=== PATIENT | male | born 1975 | race Caucasian/White ===

== ENCOUNTER 2018-03-19 16:01 | Observation (INO) ==
--- NOTE | 2018-03-19 17:46 | ED ---
HPI General Chief Complaint: Chest Pain Stated Complaint: Chest discomfort/tightness x AM Time Seen by Provider: 03/19/18 17:44 Source: patient Mode of arrival: ambulatory Limitations: no limitations History of Present Illness HPI narrative: 42-year-old male patient with history of smoking, diabetes, presents to the ER today because he states that he started having substernal chest discomfort this morning, states it radiates up to his neck area. He feels like it is pressure-like. He states is currently about a 2 out of 10. He denies any vomiting, fevers, shortness of breath, or other symptoms. He admits he has been more stressed out, but he states he is always kind of stressed out. Related Data Home Medications Medication Instructions Recorded Confirmed No Known Home Medications 03/19/18 03/19/18 Allergies Allergy/AdvReac Type Severity Reaction Status Date / Time amoxicillin Allergy Severe RASH Unverified 03/19/18 17:09 cephalexin Allergy Severe RASH Unverified 03/19/18 17:09 ketorolac Allergy Severe SWELLING Unverified 03/19/18 17:09 phenobarbital Allergy Severe RASH Unverified 03/19/18 17:09 butorphanol AdvReac Intermediate TACHYCARDIA Unverified 03/19/18 17:09 sumatriptan AdvReac Intermediate Nausea/Vomi Unverified 03/19/18 17:09 ting Review of Systems ROS: all other systems reviewed are negative [facility] Medical History Medical History Diabetes (Acute) Epilepsia (Acute) Hx of tooth extraction (Acute) Migraines (Acute) Surgical History Surgical History Hx of knee surgery (Acute) Social History Social History Substance History: No History of Abuse Second Hand Smoke Exposure: Yes Smoking Status: Current every day smoker Tobacco Type: Cigarettes How Often Do You Have a Drink Containing Alcohol: Never Recent Travel in [place] within the Last 8 Weeks: No Recent Out of Country Travel within the Last 8 Weeks: No Immunization History Tetanus Immunization: >5 Years Hx Influenza Vaccine This Season: No Exam Narrative Exam Narrative: GENERAL: Well-developed middle-age male patient currently in mild distress. SKIN: Focused skin assessment warm/dry. HEAD: Atraumatic. Normocephalic. EYES: Pupils equal and round. No scleral icterus. No injection or drainage. ENT: No nasal bleeding or discharge. Mucous membranes pink and moist. NECK: Trachea midline. No JVD. CARDIOVASCULAR: Regular rate and rhythm. No murmur appreciated. RESPIRATORY: No accessory muscle use. Clear to auscultation. Breath sounds equal bilaterally. GASTROINTESTINAL: Abdomen soft, non-tender, nondistended. Hepatic and splenic margins not palpable. MUSCULOSKELETAL: No obvious deformities. No clubbing. No cyanosis. No edema. NEUROLOGICAL: Awake and alert. No obvious cranial nerve deficits. Motor grossly within normal limits. Normal speech. PSYCHIATRIC: Appropriate mood and affect; insight and judgment normal. Course Initial Documented Vital Signs Temperature 98.3 F 03/19/18 17:05 Pulse Rate 78 03/19/18 17:05 Respiratory Rate 16 03/19/18 17:05 Blood Pressure 184/95 H 03/19/18 17:05 Pulse Oximetry 100 03/19/18 17:05 Last Documented Vital Signs Temperature 98.3 F 03/19/18 17:05 Pulse Rate 78 03/19/18 17:05 Respiratory Rate 16 03/19/18 17:05 Blood Pressure 184/95 H 03/19/18 17:05 Pulse Oximetry 98 03/19/18 17:50 Medical Decision Making MDM Narrative Medical decision making narrative: Show any significant dysrhythmias or ST changes. Cardiac enzymes are negative. Patient endorses family history of heart disease, he smokes, and blood pressure is elevated as well. At this point , my plan would be to admit him for further evaluation of chest pain in the chest pain center. Medical Screen Exam Complete: Yes Emergency Medical Condition: Yes Differential Diagnosis Differential Diagnosis: Chest pains: Anxiety attack versus ACS versus dysrhythmias Lab Data Lab results reviewed: Yes I reviewed the patient's lab results. Result diagrams: 03/19/18 17:50 03/19/18 17:50 Lab Results 03/19/18 03/19/18 Range/Units 17:50 17:50 CBC w Diff Auto diff final WBC 7.6 (4.0-11.0) th/mm3 RBC 4.80 (4.50-5.90) mil/mm3 Hgb 15.2 (13.0-17.0) gm/dL Hct 44.3 (39.0-51.0) % MCV 92.3 (80.0-100.0) fL MCH 31.7 (27.0-34.0) pg MCHC 34.3 (32.0-36.0) % RDW 12.3 (11.6-17.2) % Plt Count 183 (150-450) th/mm3 MPV 8.2 (7.0-11.0) fL Neut % (Auto) 67.0 (16.0-70.0) % Lymph % (Auto) 23.6 (9.0-44.0) % Cook % (Auto) 6.0 (0.0-8.0) % Eos % (Auto) 1.8 (0.0-4.0) % Baso % (Auto) 1.6 (0.0-2.0) % Neut # (Auto) 5.1 (1.8-7.7) th/mm3 Lymph # (Auto) 1.8 (1.0-4.8) th/mm3 Cook # (Auto) 0.5 (0.0-0.9) th/mm3 Eos # (Auto) 0.1 (0.0-0.4) th/mm3 Baso # (Auto) 0.1 (0.0-0.2) th/mm3 WBC Differential . Differential Comment . Sodium 139 (136-145) meq/L Potassium 4.0 (3.5-5.1) meq/L Chloride 108 H (98-107) meq/L Carbon Dioxide 23.3 (21.0-32.0) meq/L Anion Gap 8 (5-15) meq/L BUN 19 H (7-18) mg/dL Creatinine 1.10 (0.60-1.30) mg/dL Estimated GFR 74 L (>89) mL/min Random Glucose 101 (74-106) mg/dL Calcium 8.5 (8.5-10.1) mg/dL Total Bilirubin 0.3 (0.2-1.0) mg/dL AST 25 (15-37) U/L ALT 30 (12-78) U/L Alkaline Phosphatase 77 (45-117) U/L Troponin I Less than 0.02 L (0.02-0.05) ng/mL Total Protein 7.6 (6.4-8.2) g/dL Albumin 4.0 (3.4-5.0) g/dL Imaging Data My impression: CHEST X-RAY: No infiltrate, pneumothorax or mediastinal widening. Radiologist's impression: Chest X-Ray 03/19/18 17:44 CONCLUSION: No active disease. ECG Data Attestation: I personally reviewed and interpreted this ECG as follows: Interpretation: EKG shows normal sinus rhythm at a rate of 74 bpm. No signs of acute ST elevations or depressions. Discharge Plan Discharge Disposition Patient Disposition: 30 Still Patient Discharge Condition Condition: Stable Discharge Details Anticipated Discharge Date: 03/19/18 Diagnosis: Chest pain Physicians Team ED Provider: Lenard Marte Primary Care Provider: Primary Care Harleen Cruz Rxs /Orders / Referrals /Forms Prescriptions: No Action No Known Home Medications RF: 0 Discharge Instructions Patient Printed Instructions: Chest Pain (ED) Status ED Status: With Doctor
[2018-03-19 18:03] LABS: Baso # (Auto) 0.1 th/mm3 (0.0-0.2); Baso % (Auto) 1.6 % (0.0-2.0); Eos # (Auto) 0.1 th/mm3 (0.0-0.4); Eos % (Auto) 1.8 % (0.0-4.0); Hematocrit 44.3 % (39.0-51.0); Hemoglobin 15.2 gm/dL (13.0-17.0); Lymph # (Auto) 1.8 th/mm3 (1.0-4.8); Lymph % (Auto) 23.6 % (9.0-44.0); Mean Corpuscular HGB Conc 34.3 % (32.0-36.0); Mean Corpuscular Hemoglobin 31.7 pg (27.0-34.0); Mean Corpuscular Volume 92.3 fL (80.0-100.0); Mean Platelet Volume 8.2 fL (7.0-11.0); Mono # (Auto) 0.5 th/mm3 (0.0-0.9); Neut # (Auto) 5.1 th/mm3 (1.8-7.7); Platelet Count 183 th/mm3 (150-450); Red Cell Distribution Width 12.3 % (11.6-17.2); White Blood Count 7.6 th/mm3 (4.0-11.0)
[2018-03-19 18:06] LABS: Chloride 108 meq/L (98-107); Sodium 139 meq/L (136-145)
[2018-03-19 18:09] LABS: Calcium 8.5 mg/dL (8.5-10.1)
[2018-03-19 18:10] LABS: Anion Gap 8 meq/L (5-15); Blood Urea Nitrogen 19 mg/dL (7-18); Carbon Dioxide 23.3 meq/L (21.0-32.0); Glucose,Random 101 mg/dL (74-106)
[2018-03-19 18:13] LABS: Alanine Aminotransferase 30 U/L (12-78); Aspartate Aminotransferase 25 U/L (15-37); Glomerular Filtration Rate 74 mL/min (>89)
[2018-03-19 18:15] LABS: Total Protein 7.6 g/dL (6.4-8.2)
[2018-03-19 18:16] LABS: Alkaline Phosphatase 77 U/L (45-117)
--- NOTE | 2018-03-19 19:10 | XR ---
EXAM DATE: 03/19/2018 6:20 PM EDT AGE/SEX: 42 years / Male INDICATIONS: Patient complains of chest pain. CLINICAL DATA: This is the patient's initial encounter. Patient reports that signs and symptoms have been present for 1 day and indicates a pain score of 7/10. MEDICAL/SURGICAL HISTORY: None. None. COMPARISON: [facility] [place], 03[place]. . FINDINGS: A single AP view of the chest demonstrates the lungs to be symmetrically aerated without evidence of mass, infiltrate or effusion. The cardiomediastinal contours are unremarkable. Osseous structures a re intact. CONCLUSION: No active disease. Electronically signed by: Peña Velez MD 03/19/2018 7:09 PM EDT
[2018-03-19 21:26] LABS: Creatine Kinase 130 U/L (39-308)
[2018-03-20 00:29] LABS: Creatine Kinase 119 U/L (39-308)
[2018-03-20] MEDS ORDERED: Dextrose 50% in Water 50 ML Vial IV.PUSH PRN (05:34)
[2018-03-20] MEDS: Sod Chloride 0.9% Inj 1,000 ML IV.CONT SCH ×2 (06:00→17:57)
[2018-03-20] MEDS: Insulin NovoLOG Aspart Correctional Sugar Inj SQ SCH ×4 (07:13→21:22)
--- NOTE | 2018-03-20 08:06 | P.HP ---
History of Present Illness Primary Care Physician: No Primary Care Physician Chief Complaint: chest pain History of Present Illness: This is a 42-year-old male patient with a known medical history of tobacco abuse , diabetes who presented to the ED with complaints of chest pain. Patient states that while cleaning his home yesterday he noticed a chest pain that was substernal, radiating up his neck, was characteristically pressure-like in nature and at its worst was a 4 out of 10 on pain scale. The pain lasted several hours and patient states that the pain just got better on its own, denies any known aggravating or alleviating factors. Denies any associated nausea, vomiting, shortness of breath and sweating. Patient states that it feels like it could maybe be some gastric reflux or muscle strain. He does admit to history of an anxiety attack and states that this somewhat reminds him of that episode. Although he denies any anxiety yesterday. Patient denies any recent illness including fever, chills, cough, shortness of breath, headache, vomiting, nausea, vomiting, diarrhea or dysuria. Patient does not follow with the PCP. Patient admits to a significant family medical history on both mother and father's side of cardiovascular disease. He does admit to smoking 1 pack per day of cigarettes for the last 5 years. - Diagnosis (1) Chest pain Review of Systems All other systems reviewed negative except as stated in HPI PMFSH - History History Provided By: Patient - Medical History Medical History: Medical History (Last Reviewed 03/20/18 @ 08:05 by Ida Pardo) Diabetes Epilepsia Hx of tooth extraction Migraines Tobacco abuse - Surgical History Surgical History: Surgical History (Last Reviewed 03/20/18 @ 08:05 by Ida Pardo) Hx of knee surgery - Family History Family History: Family History (Last Updated 03/20/18 @ 08:24 by Ida Pardo) Mother Cardiovascular disease Father Cardiovascular disease - Tobacco History Second Hand Smoke Exposure: Yes Tobacco Use In Past 30 Days: Yes Smoking Status: Current every day smoker Tobacco Type: Cigarettes - Alcohol History How Often Do You Have a Drink Containing Alcohol: Never - Substance Use History Substance History: No History of Abuse - Travel History Recent Travel in the [place] Within the Last 8 Weeks: No Recent Travel Out of the Country Within the Last 8 Weeks: No - Immunization History Tetanus Immunization: >5 Years Hx Influenza Vaccine This Season: No Medications and Allergies Active Medications: Active Medications Aspirin (Aspirin) 325 mg PO DAILY [facility] Clonidine HCl (Catapres) 0.1 mg PO Q6H PRN PRN Reason: SEE LABEL COMMENTS Dextrose (D50w Vial) 50 ml IV.PUSH UNSCH PRN PRN Reason: PER HYPOGLYCEMIA PROTOCOL Enalaprilat (Vasotec Inj) 1.25 mg IV.PUSH Q6H PRN PRN Reason: SEE LABEL COMMENTS Glucagon (Glucagon Inj) 1 mg OTHER PRN PRN PRN Reason: for Hypoglycemia Protocol Sodium Chloride (Ns Inj) 1,000 mls @ 84 mls/hr IV.CONT .[id number] [facility] Last Admin: 03/20/18 06:00 Dose: 84 mls/hr Insulin Aspart (Novolog Insulin Correctional Sugar Inj) 0 unit SQ ACHS [facility]; Protocol Last Admin: 03/20/18 07:13 Dose: Not Given Sodium Chloride (Ns Flush) 2 ml IV.FLUSH BID [facility] Last Admin: 03/19/18 20:08 Dose: 2 ml Sodium Chloride (Ns Flush) 2 ml IV.FLUSH PRN PRN PRN Reason: FLUSH AFTER USING IV ACCESS Allergies Allergy/AdvReac Type Severity Reaction Status Date / Time amoxicillin Allergy Severe RASH Verified 03/19/18 20:19 cephalexin Allergy Severe RASH Verified 03/19/18 20:19 ketorolac Allergy Severe SWELLING Verified 03/19/18 20:19 phenobarbital Allergy Severe RASH Verified 03/19/18 20:19 butorphanol AdvReac Intermediate TACHYCARDIA Verified 03/19/18 20:19 sumatriptan AdvReac Intermediate Nausea/Vomi Verified 03/19/18 20:19 ting Home Medications Medication Instructions Recorded Confirmed Type No Known Home Medications 03/19/18 03/19/18 History Exam Vital signs: Vital Signs 03/19/18 17:05 03/19/18 17:50 03/19/18 19:20 Temperature 98.3 F Pulse Rate 78 74 Respiratory Rate 16 16 Blood Pressure 184/95 H 169/95 H Pulse Oximetry 100 98 98 03/19/18 20:00 03/19/18 22:25 03/20/18 00:00 Temperature 96.9 F L Pulse Rate 72 88 Respiratory Rate 20 Blood Pressure 173/90 H 191/99 H Pulse Oximetry 99 99 03/20/18 04:00 Temperature 97.9 F Pulse Rate 80 Respiratory Rate 20 Blood Pressure 139/80 Pulse Oximetry 98 Intake & Output 03/19/18 03/20/18 03/20/18 18:59 06:59 18:59 Intake Total 0 / 0 Balance 0 / 0 Weight 98 kg 98 kg Intake: Oral 0 / 0 Other: # Voids 3 Narrative: GENERAL: Well-developed, well-nourished patient in [facility]. SKIN: Warm and dry. No rash. HEAD: Normocephalic. Atraumatic. EYES: Pupils equal and round. No scleral icterus. No injection or drainage. ENT: No nasal bleeding or discharge. Mucous membranes pink and moist. NECK: Supple. Trachea midline. CARDIOVASCULAR: Regular rate and rhythm. S1, S2 noted. No murmur appreciated. No chest pain to palpation. RESPIRATORY: No accessory muscle use. Clear to auscultation. Breath sounds equal bilaterally. GASTROINTESTINAL: Abdomen soft, non-tender, nondistended. Normoactive bowel sounds x4. MUSCULOSKELETAL: No obvious deformities. Extremities without clubbing, cyanosis , or edema. NEUROLOGICAL: Awake and alert. No obvious cranial nerve deficits. Motor grossly within normal limits. 5/5 muscle strength in bilateral upper and lower extremities. Normal speech. PSYCHIATRIC: Appropriate mood and affect; insight and judgment normal. Results - Labs CBC & Chem 7: 03/19/18 17:50 03/19/18 17:50 Labs: Laboratory Results - last 24 hr 03/19/18 03/19/18 03/19/18 17:50 17:50 20:55 CBC w Diff Auto diff final WBC 7.6 RBC 4.80 Hgb 15.2 Hct 44.3 MCV 92.3 MCH 31.7 MCHC 34.3 RDW 12.3 Plt Count 183 MPV 8.2 Neut % (Auto) 67.0 Lymph % (Auto) 23.6 [place] % (Auto) 6.0 Eos % (Auto) 1.8 Baso % (Auto) 1.6 Neut # (Auto) 5.1 Lymph # (Auto) 1.8 [place] # (Auto) 0.5 Eos # (Auto) 0.1 Baso # (Auto) 0.1 WBC Differential . Differential Comment . Sodium 139 Potassium 4.0 Chloride 108 H Carbon Dioxide 23.3 Anion Gap 8 BUN 19 H Creatinine 1.10 Estimated GFR 74 L Random Glucose 101 Calcium 8.5 Total Bilirubin 0.3 AST 25 ALT 30 Alkaline Phosphatase 77 Total Creatine Kinase 130 Troponin I Less than 0.02 L Less than 0.02 L Total Protein 7.6 Albumin 4.0 03/20/18 00:01 CBC w Diff WBC RBC Hgb Hct MCV MCH MCHC RDW Plt Count MPV Neut % (Auto) Lymph % (Auto) [place] % (Auto) Eos % (Auto) Baso % (Auto) Neut # (Auto) Lymph # (Auto) [place] # (Auto) Eos # (Auto) Baso # (Auto) WBC Differential Differential Comment Sodium Potassium Chloride Carbon Dioxide Anion Gap BUN Creatinine Estimated GFR Random Glucose Calcium Total Bilirubin AST ALT Alkaline Phosphatase Total Creatine Kinase 119 Troponin I Less than 0.02 L Total Protein Albumin - Imaging Impressions Chest X-Ray 03/19/18 17:44 CONCLUSION: No active disease. Caprini VTE Risk Assessment Caprini VTE Risk Assessment: No/Low Risk (score <= 1) Caprini Risk Assessment Model: Point Value = 1 Point Value = 2 Point Value = 3 Point Value = 5 Age 41-60 Minor surgery BMI > 25 kg/m2 Swollen legs Varicose veins or History of unexplained or recurrent spontaneous Oral contraceptives or hormone replacement Sepsis (< 1 month) Serious lung disease, including pneumonia (< 1 month) Abnormal pulmonary function Acute myocardial infarction Congestive heart failure (< 1 month) History of inflammatory bowel disease Medical patient at bed rest Age 61-74 Arthroscopic surgery Major open surgery (> 45 min) Laparoscopic surgery (> 45 min) Malignancy Confined to bed (> 72 hours) Immobilizing plaster cast Central venous access Age >= 75 History of VTE Family history of VTE Factor V Leiden Prothrombin [id number] Lupus anticoagulant Anticardiolipin antibodies Elevated serum homocysteine Heparin-induced thrombocytopenia Other congenital or acquired thrombophilia Stroke (< 1 month) Elective arthroplasty Hip, pelvis, or leg fracture Acute spinal cord injury (< 1 month) Prophylaxis Regimen: Total Risk Factor Score Risk Level Prophylaxis Regimen 0-1 Low Early ambulation 2 Moderate Order ONE of the following: *Sequential Compression Device (SCD) *Heparin 5000 units SQ BID 3-4 Higher Order ONE of the following medications: *Heparin 5000 units SQ TID *Enoxaparin/Lovenox 40 mg SQ daily (WT < 150 kg, CrCl > 30 mL/min) *Enoxaparin/Lovenox 30 mg SQ daily (WT < 150 kg, CrCl > 10-29 mL/min) *Enoxaparin/Lovenox 30 mg SQ BID (WT < 150 kg, CrCl > 30 mL/min) AND/OR *Sequential Compression Device (SCD) 5 or more Highest Order ONE of the following medications: *Heparin 5000 units SQ TID (Preferred with Epidurals) *Enoxaparin/Lovenox 40 mg SQ daily (WT < 150 kg, CrCl > 30 mL/min) *Enoxaparin/Lovenox 30 mg SQ daily (WT < 150 kg, CrCl > 10-29 mL/min) *Enoxaparin/Lovenox 30 mg SQ BID (WT < 150 kg, CrCl > 30 mL/min) AND *Sequential Compression Device (SCD) Assessment and Plan - Assessment (1) Chest pain Code(s): R07.9 - Chest pain, unspecified Status: Acute - Plan This is a 42-year-old male patient with: Chest pain -Patient has been admitted to the chest pain center for observation. -Serial EKGs and serial troponins have been ordered for ruling out ACS purposes. Serial troponins flat. -EKG reviewed showing sinus rhythm with some early repolarization, no ST changes to indicate any ischemia. Chest pain has resolved. -Patient does state that he does have a feeling of some reflux. Will provide some Maalox, assess response. -Patient continued on cardiac telemetry, no arrhythmias overnight. Will continue. Chest x-ray reviewed showing no acute cardiopulmonary disease. -Patient will undergo a cardiac treadmill stress test to further rule out any ischemia, further hospitalization and treatment plan will depend on treadmill results. -Patient is stable at this time and agreeable with plan. Diet-controlled diabetes -Accu-Chek before meals at bedtime, sliding scale, cover as needed. -Patient states that he does not take anything for diabetes. This is well controlled with diet. -We will continue to monitor blood sugar trends. Monitor for any hypoglycemia. DVT prophylaxis: Low risk. Ambulation.
[2018-03-20] MEDS ORDERED: Aluminum/Magnesium/Simethacone Susp 30 ML UDC PO ONE (08:24)
[2018-03-20] MEDS: Aspirin 325 MG Tablet PO SCH (08:33)
--- NOTE | 2018-03-20 10:32 | TR ---
Date Performed: 03/20/2018 Time Performed: 09:46:13 DOCTOR: Gilmer Boggs DRUG LIST: CLINICAL HISTORY: REASON FOR TEST: REASON FOR ENDING: OBSERVATION: CONCLUSION: Albert protocol completed, test stopped secondary to reaching target heart rate. Good exercise tolerance. Good BP response. Recovery quick and unremarkable. No reproducible chest discomf ort. Maximum QE=082 Target HR Wkhvqlen=720.0% Maximum UJ=924/74 Total Exercise Time=6:28 COMMENTS: Nonspecific ST-T changes are noted which normalized with exercise. However V6 continu es into recovery. This is low probability of significant ischemic heart disease however further eval uation with nuclear scan will be considered.
[2018-03-20] MEDS ORDERED: Regadenoson Inj 0.4 MG/5 ML Syringe IV.PUSH ONE (14:35)
--- NOTE | 2018-03-20 14:40 | ECG ---
Date Performed: 03/20/2018 Time Performed: 00:30:27 PTAGE: 42 years EKG: Sinus rhythm EARLY REPOLARIZATION BORDERLINE ECG Since the PREVIOUS TRACING , no significant change noted PREVIOUS TRACIN03/19/2018 21.05 DOCTOR: Vianey Maldonado Interpretating Date/Time 03/20/2018 14:34:45
--- NOTE | 2018-03-20 14:40 | ECG ---
Date Performed: 03/19/2018 Time Performed: 18:03:37 PTAGE: 42 years EKG: Sinus rhythm NORMAL ECG Since the PREVIOUS TRACING , no significant change noted PREVIOUS TRACIN03/25/2016 20.28 DOCTOR: Vianey Maldonado Interpretating Date/Time 03/20/2018 14:35:05
--- NOTE | 2018-03-20 14:40 | ECG ---
Date Performed: 03/19/2018 Time Performed: 21:05:57 PTAGE: 42 years EKG: Sinus rhythm EARLY REPOLARIZATION BORDERLINE ECG Since the PREVIOUS TRACING , no significant change noted PREVIOUS TRACIN03/19/2018 18.03 DOCTOR: Vianey Maldonado Interpretating Date/Time 03/20/2018 14:34:54
--- NOTE | 2018-03-20 16:01 | NM ---
EXAM DATE: 03/20/2018 3:53 PM EDT AGE/SEX: 42 years / Male INDICATIONS:Abnormal EKG. . Chest pain CLINICAL DATA: This is the patient's initial encounter. Patient reports that signs and symptoms have been present for 1 day and indicates a pain score of 0/10. MEDICAL/SURGICAL HISTORY: Diabetes mellitus type II. Smoker. Total knee replacement, left. COMPARISON: No prior exams available for comparison. DOSE: 8.6 mCi Tc 99m Myoview at rest 27.4 mCi [id number] at stress 0.4 mg Lexiscan STRESS SYMPTOMS: Dyspnea and weir feeling. EJECTION FRACTION: 53 % TECHNIQUE: The patient underwent pharmacologic stress with infusion of prescribed dose. Continuous ECG tracing was monitored during stress. Gated SPECT imaging was performed after stress and conventi onal SPECT imaging was performed at rest. The examination was performed on a SPECT/CT scanner, both attenuation and non-corrected datasets were reviewed. FINDINGS: Distribution: The maximum perfused segment at stress is in the inferior wall. Perfusion Study: There is a moderate fixed apical defect, and a mild reversible perfusion defect al nancy the anterior basal wall. Gated Study: There are intact wall motion and wall thickening without h ypokinetic or dyskinetic segments. The ejection fraction is calculated at 53%. RISK CATEGORY: Intermediate (1-3 % Annual Mortality Rate) CONCLUSION: 1. Fixed apical defect and reversible perfusion defect anterior basal wall suspected. 2. Ejection fraction of 53%. Electronically signed by: Bryce Parmar MD 03/20/2018 4:00 PM EDT
[2018-03-21] MEDS: Sod Chloride 0.9% Inj 1,000 ML IV.CONT SCH ×2 (05:27→18:39)
[2018-03-21] MEDS: Aspirin 325 MG Tablet PO SCH (09:02)
[2018-03-21] MEDS: Insulin NovoLOG Aspart Correctional Sugar Inj SQ SCH ×4 (09:03→20:57)
--- NOTE | 2018-03-21 09:40 | TR ---
Date Performed: 03/20/2018 Time Performed: 14:47:14 DOCTOR: Gilmer Boggs DRUG LIST: CLINICAL HISTORY: REASON FOR TEST: REASON FOR ENDING: OBSERVATION: CONCLUSION: Lexiscan stress test was performed under standard four minute protocol. Radionuclide was injected one minute prior to ending the test. No electrocardiographic abormalities were present to suggest ischemia. Nuclear imaging and interpretation are pending. COMMENTS:
--- NOTE | 2018-03-21 11:57 | ECG ---
Date Performed: 03/20/2018 Time Performed: 19:40:44 PTAGE: 42 years EKG: Sinus rhythm Extensive ST elevation suggests pericarditis Abnormal ECG Since the previous tracing, no significant change noted NO PREVIOUS TRACING DOCTOR: Vianey Maldonado Interpretating Date/Time 03/21/2018 11:56:34
[2018-03-21 14:34] LABS: Chol/HDL Ratio 4.42 Ratio; HDL Cholesterol 40.9 mg/dL (40.0-60.0)
--- NOTE | 2018-03-21 16:04 | P.PN ---
Subjective Interval history: Nursing denies any deterioration since last night. Patient says he is very hungry. Denies having any chest pain at this time. Physical Exam Vital signs: Vital Signs 03/20/18 18:40 03/20/18 18:48 03/20/18 19:00 Temperature Pulse Rate 82 83 84 Respiratory Rate 20 Blood Pressure 162/98 H Pulse Oximetry 99 03/20/18 20:00 03/20/18 21:00 03/20/18 22:00 Temperature 97.8 F Pulse Rate 81 70 68 Respiratory Rate 16 Blood Pressure 141/87 H Pulse Oximetry 98 03/20/18 23:00 03/21/18 00:00 03/21/18 01:00 Temperature Pulse Rate 78 66 72 Respiratory Rate 16 Blood Pressure 132/84 Pulse Oximetry 96 03/21/18 02:00 03/21/18 03:00 03/21/18 04:00 Temperature Pulse Rate 74 70 66 Respiratory Rate 16 Blood Pressure 128/81 Pulse Oximetry 98 03/21/18 05:00 03/21/18 06:00 03/21/18 07:00 Temperature Pulse Rate 70 64 53 L Respiratory Rate Blood Pressure Pulse Oximetry 03/21/18 08:00 03/21/18 09:00 03/21/18 10:00 Temperature 97.5 F L Pulse Rate 68 78 64 Respiratory Rate 16 Blood Pressure 124/65 Pulse Oximetry 95 03/21/18 11:00 03/21/18 11:52 03/21/18 12:00 Temperature 97.0 F L Pulse Rate 70 68 69 Respiratory Rate 20 Blood Pressure 130/90 Pulse Oximetry 98 03/21/18 13:00 03/21/18 15:17 Temperature 98.5 F Pulse Rate 73 83 Respiratory Rate 20 Blood Pressure 131/83 Pulse Oximetry 98 Intake & Output 03/20/18 03/21/18 03/21/18 18:59 06:59 18:59 Intake Total 1480 / 1480 240 / 240 Output Total 200 / 200 Balance 1480 / 1480 40 / 40 Weight 93.8 kg Intake: IV 1000 / 1000 NS Inj 1,000 ML @ 84 mls/hr IV. 1000 / 1000 CONT .[id number] [facility] Rx#: [id number] Oral 480 / 480 240 / 240 Output: Urine 200 / 200 Other: # Voids 5 1 Date of Last Bowel Movement 03/18/18 03/18/18 03/20/18 # Bowel Movements 0 Narrative: Heart sounds regular rate rhythm, no murmurs Clear lungs bilaterally, unlabored breathing No lower extremity edema Results - Labs CBC & Chem 7: 03/19/18 17:50 03/19/18 17:50 Laboratory Results - last 24 hr 03/21/18 12:35 Triglycerides 133 Cholesterol 181 LDL Cholesterol, Calc 114 H HDL Cholesterol 40.9 Cholesterol/HDL Ratio 4.42 Assessment and Plan - Assessment (1) Chest pain Code(s): R07.9 - Chest pain, unspecified Status: Acute - Plan 42-year-old white male who was admitted for chest pain Abnormal stress tests including treadmill and Lexiscan. Cardiology following, anticipate cardiac catheterization tomorrow.
[2018-03-22 06:45] LABS: Activated Partial Thrombo Time 29.3 sec (24.3-30.1); Prothrombin Time 10.6 sec (9.8-11.6)
[2018-03-22] MEDS: Sod Chloride 0.9% Inj 1,000 ML IV.CONT SCH ×2 (07:24→18:23)
[2018-03-22] MEDS: Insulin NovoLOG Aspart Correctional Sugar Inj SQ SCH ×4 (08:09→20:25)
[2018-03-22] MEDS: Aspirin 325 MG Tablet PO SCH (08:13)
--- NOTE | 2018-03-22 08:30 | MB ---
cc: José Soliman DO DATE: 03/21/2018 REASON FOR CONSULTATION: Chest pain, abnormal pharmacologic nuclear stress test. HISTORY OF PRESENT ILLNESS: Cheko Abdullahi is a pleasant 42-year-old male who presented to [facility] Emergency Room in [place] due to chest pain. He underwent a pharmacologic nuclear stress test and was found to have significant ischemia and so he was transferred to [facility] for further evaluation. He states that this started the day before when he was cleaning his house and started noticing substernal pain radiating up to his neck. Pain lasted several hours and finally got better on its own. As it ended up coming back at some time, he decided to go to the emergency room. In seeing him, he is currently hemodynamically stable without chest pain or shortness of breath. PAST MEDICAL HISTORY: 1. Diabetes. 2. Epilepsy. 3. Migraines. 4. Tobacco abuse. PAST SURGICAL HISTORY: Knee surgery. ALLERGIES: 1. AMOXICILLIN. 2. CEPHALEXIN. 3. KETOROLAC. 4. PHENOBARBITAL. 5. BUTORPHANOL. 6. SUMATRIPTAN. MEDICATIONS: Denies. FAMILY HISTORY: Positive for coronary artery disease. Denies sudden cardiac within the family. SOCIAL HISTORY: The patient smokes a pack of cigarettes a day for the last 5 years. Denies alcohol or drug abuse. REVIEW OF SYSTEMS: Fourteen systems were reviewed including osteopathic. Pertinent positives and negatives above, otherwise negative. PHYSICAL EXAMINATION: VITAL SIGNS: Temperature 97.0, heart rate 64, blood pressure 130/90, respirations 20, pulse oximetry 98% on room air. GENERAL: The patient appears well, in no acute distress. Alert, awake and oriented x 3. HEENT: Extraocular muscles intact. Mucous membranes moist. NECK: Supple. No JVD at 45 degrees. No carotid bruits heard bilaterally. Carotid upstroke is brisk in nature. HEART: Regular rate and rhythm. Positive first and second heart sounds with no noted murmurs, gallops or rubs. LUNGS: Clear to auscultation bilaterally. No wheezes, rales or rhonchi. ABDOMEN: Soft, nontender, nondistended. No organomegaly noted. EXTREMITIES: Show no clubbing, cyanosis or edema. Femoral and distal pulses are intact bilaterally. NEUROLOGIC: No focal deficits. SKIN: Warm, dry and intact. OSTEOPATHIC: No kyphoscoliosis, lordosis or paraspinal tender points. LABORATORY DATA: Hemoglobin 15.2, hematocrit 44.3, platelets 183. Potassium 4.0, BUN 19, creatinine 1.1. Troponin negative x 3. Electrocardiogram (03/20/2018 at 1940): Sinus rhythm, ST elevations inferior, anterior and laterally, most likely due to early repolarization. No significant change from 03/20/2018 at 1230. IMPRESSIONS: 1. Chest pain concerning for coronary insufficiency. 2. Abnormal pharmacologic nuclear stress test. 3. Diabetes mellitus. 4. Tobacco abuse. RECOMMENDATIONS: 1. Mr. Abdullahi underwent a pharmacologic nuclear stress test and during this was noted to have a fixed apical defect and reversible perfusion defect of the anterior basal wall, which was considered intermediate risk. 2. Because of this, he was recommended cardiac catheterization. Risks, benefits and alternatives were explained to him and he consented to such. 3. We will check a 2D echo to look at his overall left ventricular function, cardiac structure and possible valvulopathies. 4. I spoke to him for greater than 3 minutes about tobacco cessation. 5. Further recommendations will be made after coronary visualization. Thank you for allowing me to see Cheko Abdullahi. if there are any questions, please do not hesitate to call. José Soliman, DO MARTINEZ/nga/zeynep , 03:38 PM , 03:48 PM
--- NOTE | 2018-03-22 10:18 | ECHRPT ---
Indication: CONCLUSIONS Normal left ventricular systolic function with an ejection fraction of 60-65%. Normal left ventricular size and wall thickness. No regional wall motion abnormalities present. Normal right ventricular size and function. There is mild tricuspid valve regurgitation. The estimated pulmonary arterial pressure is 31 mmHg. IVC is normal size with greater than 50% collapse with inspiration. No pericardial effusion is present. No prior echo for comparison. BP: / HR: Rhythm: Sinus MEASUREMENTS (Male / Female) Normal Values Technical Quality:Fair 2D ECHO LV Diastolic Diameter PLAX 4.8 cm 4.2 - 5.9 / 3.9 - 5.3 cm LV Systolic Diameter PLAX 3.5 cm IVS Diastolic Thickness 1.0 cm 0.6 - 1.0 / 0.6 - 0.9 cm LVPW Diastolic Thickness 1.0 cm 0.6 - 1.0 / 0.6 - 0.9 cm LV Relative Wall Thickness 0.4 RV Internal Dim ED PLAX 3.1 cm LVOT Diameter 2.2 cm Aortic Root Diameter 3.3 cm LA Systolic Diameter LX 3.7 cm 3.0 - 4.0 / 2.7 - 3.8 cm M-MODE AV Cusp Separation MM 2.2 cm DOPPLER AV Peak Velocity 127.0 cm/s AV Peak Gradient 6.5 mmHg AV Mean Gradient 3.0 mmHg AV Velocity Time Integral 23.8 cm LVOT Peak Velocity 87.2 cm/s LVOT Peak Gradient 3.0 mmHg LVOT Velocity Time Integral 17.5 cm AV Area Cont Eq vti 2.8 cm AV Area Cont Eq pk 2.6 cm Mitral E Point Velocity 74.5 cm/s Mitral A Point Velocity 54.8 cm/s Mitral E to A Ratio 1.4 LV E' Lateral Velocity 10.6 cm/s Mitral E to LV E' Lateral Ratio 7.0 LV E' Septal Velocity 8.1 cm/s Mitral E to LV E' Septal Ratio 9.2 TR Peak Velocity 229.0 cm/s TR Peak Gradient 21.0 mmHg Right Atrial Pressure 10.0 mmHg Pulmonary Artery Systolic Pressu 31.0 mmHg Right Ventricular Systolic Press 31.0 mmHg PV Peak Velocity 60.2 cm/s PV Peak Gradient 1.4 mmHg FINDINGS LEFT VENTRICLE Normal left ventricular size. Wall thickness is measured at the upper limits of normal. The left ventricular systolic function is normal with an estimated ejection fraction in the range of 60-65%. RIGHT VENTRICLE Normal right ventricular size and systolic function. LEFT ATRIUM The left atrial size is normal. RIGHT ATRIUM The right atrial size is normal. ATRIAL SEPTUM No atrial level shunt is demonstrated by color flow Doppler interrogation. AORTA The aortic root and proximal ascending aorta are normal in size on limited imaging. MITRAL VALVE Trace mitral valve regurgitation. AORTIC VALVE Aortic valve sclerosis is present. (Mild, peak graident 6.5 mmHg and mean 3.0 mmHg). TRICUSPID VALVE Structural Normal valve. There is mild tricuspid valve regurgitation. The estimated pulmonary arterial pressure is 31 mmHg. PULMONARY VALVE Trivial pulmonary valve regurgitation. VESSELS The inferior vena cava is normal in size with greater than 50% collapse with inspiration. PERICARDIUM No pericardial effusion. Vitaliy Mccartney MD (Electronically Signed) Final Date:22 March 2018 10:18
[2018-03-22] MEDS ORDERED: Heparin/NS PF Inj 1,000 ML ONE (15:42)
[2018-03-22] MEDS ORDERED: fentaNYL Citrate Inj 100 MCG/2 ML Ampul ONE (15:43)
[2018-03-22] MEDS ORDERED: Heparin 10,000 UNITS/10 ML Vial (for IV use) ONE (15:43)
[2018-03-22] MEDS ORDERED: Iohexol 350 MG/ML 100 ML Vial (for Cath Lab) IVCONTRAST ONE (17:00)
[2018-03-22] MEDS ORDERED: Misc Info for Pharmacy OTHER STA (17:06)
--- NOTE | 2018-03-22 17:06 | CATHPROC ---
[facility] HIS Report Study Information Study Number Admission Scheduled Start Study Start [id number] Mar 20 2018 4:17PM 03/22/2018 Mar 22 2018 3:40PM [place] [facility] Cardiac Pacer/ICD Admit Source Facility Department Other [facility] - Exchange Underwriting Consultant Physician and Clinical Staff Initial José Lin Director Software Tracie Ingram,RN Recorder Leigh Contreras ,RT(R) ScrGracia Crawford,RT(R) (BS) Procedures Performed Procedure Location (Site) Vessel Name Coronary Angiograms LCA Left Coronary Coronary Angiograms RCA Right Coronary Drug Eluting Inflatio LAD Mid Left Coronary L Heart Cath PTCA LAD Mid Left Coronary Wire insertion Radial (right) Radial Art. Equipment Time Casting Supervisor Description Size Mfg Part Number Used/Scraped WIRE, BALANCE MIDDLEWEIGHT [id number] 16:17 [employer] 190CM Used 190CM *[id number] TRANSDUCER, TRUWAVE [id number] 15:43 DOMINIQUE MELO * Used W/STOCKCOCK *[id number] 16:38 [employer]ON [employer] STENT, SYNERGY 2.5 X 16MM Used *[id number] *[id number] [id number] *[id number] [id number] *[id number] 15:43 BUYSTAND BLANKET,WARM AIR CCL * Used *[id number] 15:43 BUYSTAND PACK, CCL CUSTOM * Used *[id number] 15:43 BUYSTAND SUPPORT, ARTERIAL ADULT [id number] *[id number] Used [id number] 16:20 MEDTRONIC BALLOON, 2.0 X 10MM EUPHORA 10MM Used *[id number] BALLOON, 2.75 X 12MM NC [id number] 16:42 MEDTRONIC 12MM Used EUPHORA *[id number] 16:16 MEDTRONIC/AVE EBU 3.5 Z2 GUIDE CATHETER FR 6 Used *[id number] 16:17 Neurolink 30 NELLY INDEFLATOR Used *[id number] BAND, RADIAL COMPRESSION TR [id number] 16:01 [employer] MEDICAL 24CM Used SHORT 24 *[id number] 15:43 Neurolink WIRE, EXCHANGE 260CM 3MMJ 260CM Used *[id number] 15:43 NAMIC MANIFOLD, 4 PORT * Used *[id number] 15:43 NYCOMED OMNIPAQUE, 350 MG, 150ML 150ML [id number] Used SHEATH, FR6 TRANSRADIAL [id number] 15:43 Admeld FR 6 Used SLENDER 10CM *[id number] Equipment Model, Serial, Lot Number and Expiration Data Description Model Number Serial Number Lot Number Expiration Date PABLO CROFT [id number] 05-11-2018 History: Current Medications Medication Dosage/Unit Route Frequency Last Date/Time Taken ASA History: Allergies Allergy Reaction phenobarbital RASH cephalexin RASH amoxicillin RASH sumatriptan Nausea/Vomiting butorphanol TACHYCARDIA ketorolac SWELLING History: Risk Factors Family History of Hypertension Dyslipidemia Previous [place] Previous Heart Failure Premature CAD No No Yes No No Prior Valve Prior PCI Prior CABG Surgery No No No Cerebrovascular Peripheral Artery Chronic Lung On Dialysis Diabetes Diabetes Therapy Disease Disease Disease No No No No Yes Insulin History: Stress Tests Stress or Imaging Studies Performed Yes Standard Exercise Stress Test No Stress Echo No Stress Test SPECT Stress Test SPECT Result Stress Test SPECT Ischemia Risk/Extent Yes Positive Intermediate Stress Test CMR No Cardiac CTA Coronary Calcium Score No No History: Other Current Smoker Packs a Day Years Used Pack Years Yes 1 5 5 Labs Hgb (g/dl) Hct (%) WBC (l/cumm) Platelets (thousands) 11.60-17.00 35.00-51.00 4.00-11.00 150.00-450.00 13.2 44.3 7.6 183 Glucose (mg/dl) BUN (mg/dl) Creatinine (mg/dl) BUN:Creatinine (1:x) 74.00-106.00 7.00-18.00 0.50-1.30 10.00-20.00 101 19 1.1 17.3 Na (meq/l) K (meq/l) 136.00-145.00 3.50-5.10 139 4.6 INR (PTT:PT) 0.90-1.10 1 Troponin I (ng/ml) CPK (u/l) 0.02-0.05 26.00-308.00 0.02 130 Medication Medication Total Dose (Bolus/Oral) Medication Total Dosage/Unit 1% XYLOCAINE 5 mL FENTANYL 100 mcg HEPARIN 5600 units NTG (IC) 200 mcg PLAVIX 600 mg RADIAL COCKTAIL 5 mL (Bolus) VERSED 1.5 mg Medications (Bolus/Oral) Medication Time Given Dosage/Unit Administered By Reason VERSED 03/22/2018 4:04:59 PM 1 mg Adamy, Tracie 1 mg VERSED given in lab by Tracie Ingram RN in Right Antecubital via Peripheral IV. Ordered by José Kaur FENTANYL 03/22/2018 4:05:08 PM 50 mcg Adamy, Tracie 50 mcg FENTANYL given in lab by Tracie Ingram, YOGI in Right Antecubital via Peripheral IV. Ordered José Musa 1% XYLOCAINE 03/22/2018 4:05:15 PM 5 mL José Soliman 5 mL 1% XYLOCAINE given in lab by José Soliman in Right Radial via Subcutaneous. Ordered by José Kaur Ntg 200mcg Verapamil 2.5mg Heparin RADIAL COCKTAIL 03/22/2018 4:08:10 PM 5 mL (Bolus) José Soliman 3000U 5 mL (Bolus) RADIAL COCKTAIL given in lab by José Soliman via Radial. Using [Solution Name]. O rdered by Jsoé Soliman Reason: Ntg 200mcg Verapamil 2.5mg Heparin 3800U. HEPARIN 03/22/2018 4:17:52 PM 5600 units José Soliman 5600 units HEPARIN given in lab by José Soliman via Peripheral IV. Ordered by Compa Soliman VERSED 03/22/2018 4:25:51 PM 0.5 mg Adamy, Tracie 0.5 mg VERSED given in lab by Tracie Ingram RN in Right Antecubital via Peripheral IV. Ordered by José Soliman FENTANYL 03/22/2018 4:26:00 PM 25 mcg Adamy, Tracie 25 mcg FENTANYL given in lab by Tracie Ingram RN in Right Antecubital via Peripheral IV. Ordered José Musa FENTANYL 03/22/2018 4:43:40 PM 25 mcg Adamy, Tracie 25 mcg FENTANYL given in lab by Tracie Ingram, YOGI in Right Antecubital via Peripheral IV. Ordered José Musa NTG (IC) 03/22/2018 4:47:27 PM 200 mcg José Soliman 200 mcg NTG (IC) given in lab by José Soliman via Intra-coronary. Ordered by José Soliman. PLAVIX 03/22/2018 4:51:11 PM 600 mg Tracie Ingram 600 mg PLAVIX given in lab by Tracie Ingram, RN via Oral. Ordered by José Soliman Medication (Drip) Medication Time Given Dosage/Unit Concentration/Unit Diluent (ml) Solution IV Solutions 03/22/2018 3:43:28 PM 50 mL (IV) NaCl .9 Patient arrived on IV Solutions via Peripheral IV. Pump/Drip Flow using NaCl .9. Initial Case Assessment Cardiovascular HR NIBP 70 137/75 Edema Present Skin color Skin None Normal Warm Dry Circulatory - Right Pulses Dorsalis Pedis Femoral Radial 2 2 2 Scale (0,1,2,3,4,d) Circulatory - Left Pulses Dorsalis Pedis Femoral Radial 2 2 Scale (0,1,2,3,4,d) Neurological State Oriented to time-place- Alert Moves all extremities person Respiration - General Respiration Rate SpO2 (%) (B/min) 14 97 Initial Case Assessment Cardiovascular HR NIBP 89 130/82 Edema Present Skin color Skin None Normal Warm Dry Circulatory - Right Pulses Dorsalis Pedis Femoral Radial 2 2 2 Scale (0,1,2,3,4,d) Circulatory - Left Pulses Dorsalis Pedis Femoral Radial 2 2 Scale (0,1,2,3,4,d) Neurological State Oriented to time-place- Alert Moves all extremities person Respiration - General Respiration Rate SpO2 (%) (B/min) 15 97 Chronological Log Time Study Chronological Log 15:32:49 Patient arrived via Bed. 15:32:52 Patient Name, D.O.B, / Armband Verified By R.N. 15:43:08 Consent signed by the physician and the patient and verified by the [facility] Underwriting Consultant staff. 15:43:13 Verbal Stimulation=2 Physical Stimulation=2 Airway=2 Respiration=2 TOTAL=8. (0=absent, 1=li mited, 2=present) 15:43:17 Allens test performed on the right radial and ulnar artery. positive 15:43:23 Patient has been NPO for More than 6Hrs. 15:43:24 Skin Breakdown- none per patient 15:43:25 Patient Warmer Placed on the Table. 15:43:26 Carolina Prominences Protected 15:43:27 A # 20 IV was noted in the Antecubital (right). Grade = 0 15:43:28 Patient arrived on IV Solutions via Peripheral IV. Pump/Drip Flow using NaCl .9. Assessment: Initial Case, HR=70 BPM, XTYK=645/75 mmhg, Edema=None, Color=Normal, Skin = Warm, D ry Right Pulses: Clifton Ped=2, Femoral=2, Radial=2 15:44:17 Left Pulses: Clifton Ped=2, Femoral=2 Neurological: State=Alert, Ox3, WALSH Respiration: Resp=14 B/min, SpO2=97 % Vitals capture started with the following parameters, Patient=Adult, Interval=5 min, Initial Pr ibvmbv=464 mmHg, 15:46:12 Deflation Rate=5 mmHg, Cuff placed on Left Arm 15:46:49 HR=65 bpm, GGRZ=218/75 mmhg, SpO2=97.0 %, Resp=6 B/min 15:51:46 HR=67 bpm, PBKG=279/87 mmhg, SpO2=97.0 %, Resp=17 B/min 15:53:55 Right Radial and groin(s) prepped with 2% chlorhexidine, and draped after a 3 min. waiting time. 15:54:02 MD paged 15:54:04 MD responded 15:56:45 HR=71 bpm, CAXE=043/95 mmhg, SpO2=98.0 %, Resp=9 B/min 15:58:47 MD arrived. 15:59:07 Pressure channel 1 zeroed. 16:00:15 Reference ECG taken 16:01:46 HR=72 bpm, CQNY=010/83 mmhg, SpO2=97.0 %, Resp=12 B/min Time Out. Correct patient, correct procedure, correct physician, labs, allergies, and equipment verified with cheesemaking laborer 16:04:22 team present. Fire risk assesment completed (see hard stop sheet for coding). Time Out Conc urred by MD and individual staff in procedure. 1 mg VERSED given in lab by Tracie Ingram, RN in Right Antecubital via Peripheral IV. Ordered by José Soliman 16:04:59 G. 50 mcg FENTANYL given in lab by Tracie Ingram, RN in Right Antecubital via Peripheral IV. Ord ered by Jourdan, 16::08 José Chandler 16:05:15 Case Start 5 mL 1% XYLOCAINE given in lab by José Soliman in Right Radial via Subcutaneous. Ordered by Jourdan 16:05:15 José Chandler 16:06:49 HR=77 bpm, VTBA=880/85 mmhg, SpO2=97.0 %, Resp=9 B/min 5 mL (Bolus) RADIAL COCKTAIL given in lab by José Soliman via Radial. Using [Solution Na me]. Ordered by 16:08:10 José Soliman Reason: Ntg 200mcg Verapamil 2.5mg Heparin 3800U. :08:10 Access site was Right Radial Artery . A SHEATH, FR6 TRANSRADIAL SLENDER 10CM FR 6 was advanced into the Radial (right) using the Perc utaneous 16::18 technique. A JR 4.0 INFINITI CATHETER FR 5 was advanced over a wire. OMNIPAQUE, 350 MG, 150ML 150ML was us ed for 16:09:36 injections. Recorded Pressure: LV, HR=91, Condition=Condition 1 16:10:46 (Left Ventricle) LV 107/8/9 Recorded Pressure: LV, Ao, HR=84, Condition=Condition 1 16:10:56 (Left Ventricle) LV 115/9/10, (Aorta) Ao 107/74/89 16:11:27 The RCA was injected and visualized at various angles. OMNIPAQUE, 350 MG, 150ML 150ML used . Recorded Pressure: Ao, HR=87, Condition=Condition 1 16:11:38 (Aorta) Ao 116/83/98 16:11:53 HR=85 bpm, BRRE=031/66 mmhg, SpO2=89.0 %, Resp=21 B/min After removing the current catheter a JL 3.5 INFINITI CATHETER FR 5 was advanced over a WIRE, E XCHANGE 260CM 16:13:41 3MMJ 260CM. 16:14:35 The LCA was injected and visualized at various angles. OMNIPAQUE, 350 MG, 150ML 150ML used . 16:16:27 Catheter was removed 16:16:47 HR=91 bpm, JKEI=413/76 mmhg, SpO2=91.0 %, Resp=17 B/min A EBU 3.5 Z2 GUIDE CATHETER FR 6 was advanced over a wire. OMNIPAQUE, 350 MG, 150ML 150ML was u sed for 16:17:42 injections. 16:17:52 5600 units HEPARIN given in lab by José Soliman via Peripheral IV. Ordered by José Garcia 16:21:47 HR=83 bpm, HKOV=360/83 mmhg, SpO2=91.0 %, Resp=14 B/min After removing the current catheter a JL 3.5 GUIDE CATHETER FR 6 was advanced over a WIRE, EXCH HENRIQUE 260CM 16:23:12 3MMJ 260CM. 0.5 mg VERSED given in lab by Tracie Ingram, RN in Right Antecubital via Peripheral IV. Order ed by Jourdan, 16:25:51 José Chandler 25 mcg FENTANYL given in lab by Tracie Ingram, YOGI in Right Antecubital via Peripheral IV. Ord ered by Jourdan, 16:26:00 José Chandler 16:26:12 Activated Clotting Time Drawn 16:26:50 HR=79 bpm, CUQF=112/80 mmhg, SpO2=91.0 %, Resp=8 B/min 16:27:00 A WIRE, BALANCE MIDDLEWEIGHT 190CM 190CM was inserted via Radial (right). 16:31:15 Interventional wire has crossed the lesion 16:31:51 HR=79 bpm, ZNZF=504/81 mmhg, SpO2=92.0 %, Resp=10 B/min A BALLOON, 2.0 X 10MM EUPHORA 10MM was inserted over WIRE, BALANCE MIDDLEWEIGHT 190CM 190CM via the 16:32:08 Radial (right). A BALLOON, 2.0 X 10MM EUPHORA 10MM over a WIRE, BALANCE MIDDLEWEIGHT 190CM 190CM in the LAD Mid was 16:32:31 inflated using a 30 NELLY INDEFLATOR at 10 nelly for 15 sec. A BALLOON, 2.0 X 10MM EUPHORA 10MM over a WIRE, BALANCE MIDDLEWEIGHT 190CM 190CM in the LAD Mid was 16:33:03 inflated using a 30 NELLY INDEFLATOR at 12 nelly for 15 sec. A BALLOON, 2.0 X 10MM EUPHORA 10MM over a WIRE, BALANCE MIDDLEWEIGHT 190CM 190CM in the LAD Mid was 16:33:30 inflated using a 30 NELLY INDEFLATOR at 12 nelly for 12 sec. A BALLOON, 2.0 X 10MM EUPHORA 10MM over a WIRE, BALANCE MIDDLEWEIGHT 190CM 190CM in the LAD Mid was 16:34:02 inflated using a 30 NELLY INDEFLATOR at 12 nelly for 12 sec. 16:34:53 ACT (Normal Range 90-180) = 469 16:36:28 Balloon Removed. 16:36:52 HR=79 bpm, ODBS=382/75 mmhg, SpO2=89.0 %, Resp=22 B/min A STENT, SYNERGY 2.5 X 16MM was advanced through a JL 3.5 GUIDE CATHETER FR 6 over a WIRE, TAY NCE 16:38:09 MIDDLEWEIGHT 190CM 190CM. A STENT, SYNERGY 2.5 X 16MM was deployed using a 30 NELLY INDEFLATOR at 16 atmospheres for 30 sec onds in the 16:40:57 LAD Mid. 16:41:51 HR=68 bpm, QGJK=094/79 mmhg, SpO2=97.0 %, Resp=8 B/min 16:43:36 Delivery device removed 25 mcg FENTANYL given in lab by Tracie Ingram, YOGI in Right Antecubital via Peripheral IV. Ord ered by Jourdan, 16:43:40 José Chandler A BALLOON, 2.75 X 12MM NC EUPHORA 12MM was inserted over WIRE, BALANCE MIDDLEWEIGHT 190CM 190CM via 16:43:44 the Radial (right). A BALLOON, 2.75 X 12MM NC EUPHORA 12MM over a WIRE, BALANCE MIDDLEWEIGHT 190CM 190CM in the LAD Mid 16:43:55 was inflated using a 30 NELLY INDEFLATOR at 14 nelly for 14 sec. A BALLOON, 2.75 X 12MM NC EUPHORA 12MM over a WIRE, BALANCE MIDDLEWEIGHT 190CM 190CM in the LAD Mid 16:44:21 was inflated using a 30 NELLY INDEFLATOR at 18 nelly for 15 sec. A BALLOON, 2.75 X 12MM NC EUPHORA 12MM over a WIRE, BALANCE MIDDLEWEIGHT 190CM 190CM in the LAD Mid 16:45:07 was inflated using a 30 NELLY INDEFLATOR at 20 nelly for 10 sec. A BALLOON, 2.75 X 12MM NC EUPHORA 12MM over a WIRE, BALANCE MIDDLEWEIGHT 190CM 190CM in the LAD Mid 16:46:32 was inflated using a 30 NELLY INDEFLATOR at 20 nelly for 10 sec. 16:46:48 Balloon Removed. 16:46:54 HR=72 bpm, QFDD=785/82 mmhg, SpO2=90.0 %, Resp=12 B/min 16:47:27 200 mcg NTG (IC) given in lab by José Soliman via Intra-coronary. Ordered by José Glover 16:48:48 Wire removed 16:49:27 Catheter was removed 16:50:08 Case End (Physician broke scrub) Assessment: Initial Case, HR=89 BPM, SGTV=320/82 mmhg, Edema=None, Color=Normal, Skin = Warm, D ry Right Pulses: Clifton Ped=2, Femoral=2, Radial=2 16:50:49 Left Pulses: Clif[place] Ped=2, Femoral=2 Neurological: State=Alert, Ox3, WALSH Respiration: Resp=15 B/min, SpO2=97 % 16:51:11 600 mg PLAVIX given in lab by Tracie Ingram RN via Oral. Ordered by José Soliman. 16:51:21 Catheter(s) removed without difficulty Radial Compression Device Used. ~VOLUME ML~ mLs of air placed in BAND, RADIAL COMPRESSION TR SH ORT 24 16:51:23 24CM. Affected hand ~O2 SATURATION~ % O2 saturation. 16:51:31 No case complications noted. 16:51:32 Cine recording checked. 16:51:33 Bedside Report will be given. 16:51:34 Implantable Device card placed in patient's chart. 16:51:45 A Left Heart Cath was performed. 16:51:51 HR=85 bpm, OSGF=874/81 mmhg, SpO2=92.0 %, Resp=12 B/min 17:02:28 Patient moved to [facility] End Study - Contrast Media Used In Study Contrast Total Opened (mL) Total Used (mL) Total Wasted (mL) Omnipaque 160 160 0 End Study - Maximum Contrast Load Max Contrast Load (mL) 425.6 End Study - Radiation Exposure Fluoro Time (minutes) 12.2 End Study - Sheaths Sheaths Pulled By Sheath Hold Time (min) Gracia Torres End Study - Patient Disposition Complications Transferred To Interventional Outcome No Telemetry Bed successful
[2018-03-22] MEDS: Metoprolol Tartrate 25 MG Tablet PO SCH (20:18)
--- NOTE | 2018-03-22 21:15 | P.PN ---
Subjective Interval history: Nursing denies any deterioration since last night. Patient himself has no acute complaints. No chest pain. No shortness of breath. Physical Exam Vital signs: Vital Signs 03/21/18 22:00 03/21/18 23:00 03/22/18 00:00 Temperature Pulse Rate 94 H 64 62 Respiratory Rate 16 Blood Pressure 141/88 H Pulse Oximetry 99 03/22/18 01:00 03/22/18 02:00 03/22/18 03:00 Temperature Pulse Rate 60 62 58 L Respiratory Rate Blood Pressure Pulse Oximetry 03/22/18 04:00 03/22/18 05:00 03/22/18 06:00 Temperature Pulse Rate 58 L 56 L 65 Respiratory Rate 16 Blood Pressure 113/71 Pulse Oximetry 100 03/22/18 07:00 03/22/18 08:00 03/22/18 09:00 Temperature 97.9 F Pulse Rate 68 68 60 Respiratory Rate 16 Blood Pressure 119/66 Pulse Oximetry 97 03/22/18 10:00 03/22/18 11:00 03/22/18 12:00 Temperature 98.0 F Pulse Rate 59 L 58 L 59 L Respiratory Rate 16 Blood Pressure 126/59 L Pulse Oximetry 98 03/22/18 13:00 03/22/18 14:00 03/22/18 15:00 Temperature Pulse Rate 57 L 69 74 Respiratory Rate Blood Pressure Pulse Oximetry 03/22/18 16:00 03/22/18 17:00 03/22/18 17:06 Temperature Pulse Rate 73 71 69 Respiratory Rate 16 Blood Pressure 122/74 Pulse Oximetry 98 03/22/18 17:21 03/22/18 17:36 03/22/18 17:51 Temperature Pulse Rate 72 61 65 Respiratory Rate 16 16 16 Blood Pressure 120/76 124/75 114/72 Pulse Oximetry 94 L 94 L 95 03/22/18 18:00 03/22/18 18:21 03/22/18 18:51 Temperature Pulse Rate 78 70 71 Respiratory Rate 18 18 Blood Pressure 118/80 143/95 H Pulse Oximetry 96 99 03/22/18 19:21 03/22/18 19:51 Temperature 98.0 F Pulse Rate 80 85 Respiratory Rate 18 18 Blood Pressure 144/90 H 141/87 H Pulse Oximetry 98 98 Intake & Output 03/22/18 03/22/18 03/23/18 06:59 18:59 06:59 Intake Total 480 / 480 560 / 560 Balance 480 / 480 560 / 560 Weight 93.7 kg Intake: Oral 480 / 480 560 / 560 Other: # Voids 3 4 Date of Last Bowel Movement 03/21/18 03/21/18 # Bowel Movements 0 Narrative: Heart sounds regular rate rhythm, no murmurs Clear lungs bilaterally, unlabored breathing Results - Labs CBC & Chem 7: 03/23/18 07:50 03/23/18 07:50 Laboratory Results - last 24 hr 03/22/18 05:55 PT 10.6 INR 1.0 APTT 29.3 Assessment and Plan - Assessment (1) Chest pain Code(s): R07.9 - Chest pain, unspecified Status: Acute - Plan 42-year-old white male who was admitted for chest pain Abnormal stress tests including treadmill and Lexiscan. Cardiology following, anticipate cardiac catheterization tomorrow.
--- NOTE | 2018-03-23 01:33 | P.PNCA ---
Subjective Interval history: Post-PCI LAD Doing well Medications and Allergies Active Medications: Active Medications Aspirin (Aspirin Chew) 81 mg PO DAILY [facility] Atorvastatin Calcium (Lipitor) 80 mg PO HS [facility] Last Admin: 03/22/18 20:21 Dose: 80 mg Clonidine HCl (Catapres) 0.1 mg PO Q6H PRN PRN Reason: SEE LABEL COMMENTS Clopidogrel Bisulfate (Plavix) 75 mg PO DAILY [facility] Dextrose (D50w Vial) 50 ml IV.PUSH UNSCH PRN PRN Reason: PER HYPOGLYCEMIA PROTOCOL Enalaprilat (Vasotec Inj) 1.25 mg IV.PUSH Q6H PRN PRN Reason: SEE LABEL COMMENTS Glucagon (Glucagon Inj) 1 mg OTHER PRN PRN PRN Reason: for Hypoglycemia Protocol Sodium Chloride (Ns Inj) 1,000 mls @ 84 mls/hr IV.CONT .[id number] [facility] Last Admin: 03/22/18 18:23 Dose: Not Given Insulin Aspart (Novolog Insulin Correctional Sugar Inj) 0 unit SQ ACHS [facility]; Protocol Last Admin: 03/22/18 20:25 Dose: Not Given Lisinopril (Prinivil) 5 mg PO DAILY [facility] Metoprolol Tartrate (Lopressor) 12.5 mg PO BID [facility] Last Admin: 03/22/18 20:18 Dose: 12.5 mg Sodium Chloride (Ns Flush) 2 ml IV.FLUSH BID [facility] Last Admin: 03/22/18 20:24 Dose: 2 ml Sodium Chloride (Ns Flush) 2 ml IV.FLUSH PRN PRN PRN Reason: FLUSH AFTER USING IV ACCESS Allergies Allergy/AdvReac Type Severity Reaction Status Date / Time amoxicillin Allergy Severe RASH Verified 03/19/18 20:19 cephalexin Allergy Severe RASH Verified 03/19/18 20:19 ketorolac Allergy Severe SWELLING Verified 03/19/18 20:19 phenobarbital Allergy Severe RASH Verified 03/19/18 20:19 butorphanol AdvReac Intermediate TACHYCARDIA Verified 03/19/18 20:19 sumatriptan AdvReac Intermediate Nausea/Vomi Verified 03/19/18 20:19 ting Home Medications Medication Instructions Recorded Confirmed Type No Known Home Medications 03/19/18 03/21/18 History Physical Exam Vital signs: Vital Signs 03/22/18 02:00 03/22/18 03:00 09/24/18 04:00 Temperature Pulse Rate 62 58 L 58 L Respiratory Rate 16 Blood Pressure 113/71 Pulse Oximetry 100 03/22/18 05:00 03/22/18 06:00 03/22/18 07:00 Temperature Pulse Rate 56 L 65 68 Respiratory Rate Blood Pressure Pulse Oximetry 03/22/18 08:00 03/22/18 09:00 03/22/18 10:00 Temperature 97.9 F Pulse Rate 68 60 59 L Respiratory Rate 16 Blood Pressure 119/66 Pulse Oximetry 97 03/22/18 11:00 03/22/18 12:00 03/22/18 13:00 Temperature 98.0 F Pulse Rate 58 L 59 L 57 L Respiratory Rate 16 Blood Pressure 126/59 L Pulse Oximetry 98 03/22/18 14:00 03/22/18 15:00 03/22/18 16:00 Temperature Pulse Rate 69 74 73 Respiratory Rate Blood Pressure Pulse Oximetry 03/22/18 17:00 03/22/18 17:06 03/22/18 17:21 Temperature Pulse Rate 71 69 72 Respiratory Rate 16 16 Blood Pressure 122/74 120/76 Pulse Oximetry 98 94 L 03/22/18 17:36 03/22/18 17:51 03/22/18 18:00 Temperature Pulse Rate 61 65 78 Respiratory Rate 16 16 Blood Pressure 124/75 114/72 Pulse Oximetry 94 L 95 03/22/18 18:21 03/22/18 18:51 03/22/18 19:00 Temperature Pulse Rate 70 71 70 Respiratory Rate 18 18 Blood Pressure 118/80 143/95 H Pulse Oximetry 96 99 03/22/18 19:21 03/22/18 19:51 03/22/18 20:00 Temperature 98.0 F Pulse Rate 80 85 75 Respiratory Rate 18 18 Blood Pressure 144/90 H 141/87 H Pulse Oximetry 98 98 03/22/18 21:00 03/22/18 22:00 03/22/18 23:00 Temperature Pulse Rate 70 68 63 Respiratory Rate Blood Pressure Pulse Oximetry 03/23/18 00:00 03/23/18 01:00 Temperature 97.8 F Pulse Rate 67 59 L Respiratory Rate 19 Blood Pressure 135/89 Pulse Oximetry 98 Intake & Output 03/22/18 03/22/18 03/23/18 06:59 18:59 06:59 Intake Total 480 / 480 560 / 560 Balance 480 / 480 560 / 560 Weight 93.7 kg Intake: Oral 480 / 480 560 / 560 Other: # Voids 3 4 Date of Last Bowel Movement 03/21/18 03/21/18 03/21/18 # Bowel Movements 0 Narrative: GENERAL: NAD, AAOx3 SKIN: Warm and dry. HEAD: Atraumatic. Normocephalic. EYES: Pupils equal and round. No scleral icterus. No injection or drainage. ENT: No nasal bleeding or discharge. Mucous membranes pink and moist. NECK: Trachea midline. No JVD. CARDIOVASCULAR: Regular rate and rhythm. RESPIRATORY: No accessory muscle use. Clear to auscultation. Breath sounds equal bilaterally. GASTROINTESTINAL: Abdomen soft, non-tender, nondistended. Hepatic and splenic margins not palpable. MUSCULOSKELETAL: Extremities without clubbing, cyanosis, or edema. No obvious deformities. NEUROLOGICAL: Awake and alert. No obvious cranial nerve deficits. Motor grossly within normal limits. Five out of 5 muscle strength in the arms and legs. Normal speech. PSYCHIATRIC: Appropriate mood and affect; insight and judgment normal.a Results 03/19/18 17:50 03/19/18 17:50 Coagulation 03/22/18 Range/Units 05:55 PT 10.6 (9.8-11.6) sec APTT 29.3 (24.3-30.1) sec Lipids 03/21/18 Range/Units 12:35 Triglycerides 133 (42-150) mg/dL Cholesterol 181 (120-200) mg/dL HDL Cholesterol 40.9 (40.0-60.0) mg/dL Cholesterol/HDL Ratio 4.42 Ratio Intake and Output 03/22/18 03/22/18 03/23/18 14:59 22:59 06:59 Intake Total 560 / 560 Balance 560 / 560 Intake: Oral 560 / 560 Other: # Voids 4 Date of Last Bowel Movement 03/21/18 03/21/18 03/21/18 Assessment and Plan - Assessment (1) Abnormal stress test Code(s): R94.39 - Abnormal result of other cardiovascular function study Status: Acute (2) CAD (coronary artery disease) Code(s): I25.10 - Atherosclerotic heart disease of [place] coronary artery without angina pectoris Status: Acute (3) Chest pain Code(s): R07.9 - Chest pain, unspecified Status: Acute - Plan 1) Chest pain/abnormal stress test 2) PCI of LAD with PATRICE ASA/Plavix BB/Statin/FELICITA-I 3) Watch overnight and if stable tomorrow will plan for discharge
--- NOTE | 2018-03-23 06:26 | MA ---
cc: José Soliman DO DATE: 03/22/2018 PROCEDURE: Left heart catheterization, coronary angiogram, moderate sedation 45 minutes, Synergy drug-eluting stent (2.5 x 16) to the mid left anterior descending. PREPROCEDURE DIAGNOSES: Chest pain concerning for coronary insufficiency, abnormal stress test (intermediate risk). POSTPROCEDURE DIAGNOSES: Coronary artery disease/unstable angina, status post Synergy drug-eluting stent (2.5 x 16) to mid left anterior descending. MEDICATIONS: Versed 1.5 mg, fentanyl 100 mcg, verapamil 2.5 mg, nitro 400 mcg, heparin 9400 units, Plavix 600 mg. CONTRAST USED: 160 mL. FLUOROSCOPY: 12.2 minutes. MODERATE SEDATION: 45 minutes. FRAILTY SCORE: Two. ESTIMATED BLOOD LOSS: 10 mL. PROCEDURAL SUMMARY: Cheko Abdullahi is a pleasant 42-year-old male who presented to [facility] due to chest pain. He underwent a stress test and this was read as apical anterior infarction with anterior apical basal ischemia and an intermediate risk. Review of the images shows what appears to be ischemia of multiple areas of the anterior wall. During cardiac catheterization, review of the images shows a probable apical infarction by ischemia of the mid and basal anterior wall. Because of this, he was recommended cardiac catheterization. Risks, benefits, and alternatives were explained to him and he consented to such. He was brought to the lab and prepped in the usual sterile fashion. The right radial artery was accessed using modified Seldinger technique and placement of a 5/6 Tun[place] slender sheath. This was easily aspirated and flushed. A JR4 was advanced over a J-wire to the ascending aorta and across the aortic valve for measurement of left ventricular pressure. This was pulled back across the aortic valve showing no significant gradient of aortic stenosis. JR4 was used for selective angiography of the right coronary artery system. This was exchanged out for a JL3.5, which was used for selective angiography of the left coronary artery system. Please see notes below for intervention. FINDINGS: LEFT MAIN: Normal-sized vessel. It bifurcates into an LAD and circumflex. LAD: Moderate size vessel with 90% stenosis in the mid portion. Distal to this, there is no significant disease. LEFT CIRCUMFLEX: Moderate size vessel, which gives off 3 major obtuse marginals and no significant disease. RCA: Moderate size vessel with diffuse 30%-40% disease throughout. LVEDP: 10. INTERVENTION: As the patient appeared to have anterior ischemia on his stress test as well as chest pain concerning for coronary insufficiency, I thought that it was reasonable to intervene on his mid LAD. Ultimately, he had normal wall motion and it shows that this area is most not likely scarred as previously thought on his stress test and I believe that overall the stress test showed ischemia of the anterior wall. A JL 3.5 guide was engaged in the left main. Heparin was given as an anticoagulant. A BMW wire was advanced into the distal LAD. A compliant balloon (2 x 10) was used to pre-dilate the lesion. A Synergy drug-eluting stent (2.5 x 16) was placed over the lesion and inflated. This was postdilated with a noncompliant balloon (2.75 x 12). The wire was removed. Final angiogram showed well-opposed stent with no perforations or dissections. The patient left the laboratory technical specialist cardiovascularly stable. He was loaded with 600 mg of Plavix. INTERVENTIONAL DATA: Vessel mid LAD, lesion length 15, pre-KORTNEY 3, post-KORTNEY 3, post-stenosis 0. IMPRESSION: 1. Chest pain concerning for coronary insufficiency. 2. Abnormal stress test showing a probable anterior wall ischemia (intermediate risk). 3. Coronary artery disease, status post Synergy drug-eluting stent (2.5 x 16) to the mid left anterior descending. RECOMMENDATIONS: 1. Mr. Abdullahi underwent PCI as above and he will be recommended aspirin and Plavix therapy. 2. He will be started on beta jhoan, statin, and FELICITA inhibitor therapy. 3. watched overnight and if stable tomorrow discharged home. Thank you for allowing me to see Cheko Abdullahi. If there are any questions, please do not hesitate to call. DO JUAN Abraham/maye , 11:07 PM , 11:18 PM
[2018-03-23 08:09] LABS: Baso # (Auto) 0.1 th/mm3 (0.0-0.2); Baso % (Auto) 0.9 % (0.0-2.0); Eos # (Auto) 0.1 th/mm3 (0.0-0.4); Eos % (Auto) 2.3 % (0.0-4.0); Hematocrit 43.1 % (39.0-51.0); Lymph # (Auto) 2.3 th/mm3 (1.0-4.8); Mean Corpuscular HGB Conc 34.7 % (32.0-36.0); Mean Corpuscular Hemoglobin 31.9 pg (27.0-34.0); Mean Platelet Volume 8.1 fL (7.0-11.0); Mono # (Auto) 0.4 th/mm3 (0.0-0.9); Mono % (Auto) 6.6 % (0.0-8.0); Neut # (Auto) 3.6 th/mm3 (1.8-7.7); Neut % (Auto) 55.2 % (16.0-70.0); Platelet Count 190 th/mm3 (150-450); Red Blood Count 4.69 mil/mm3 (4.50-5.90); Red Cell Distribution Width 13.1 % (11.6-17.2); White Blood Count 6.5 th/mm3 (4.0-11.0)
[2018-03-23 08:41] LABS: Calcium 8.7 mg/dL (8.5-10.1); Carbon Dioxide 25.5 meq/L (21.0-32.0); Potassium 3.9 meq/L (3.5-5.1)
[2018-03-23] MEDS ORDERED: Lisinopril 5 MG Tablet PO SCH (09:00)
[2018-03-23] MEDS: Metoprolol Tartrate 25 MG Tablet PO SCH (09:50)
--- NOTE | 2018-03-23 11:01 | P.HP ---
History of Present Illness Primary Care Physician: No Primary Care Physician Chief Complaint: chest pain History of Present Illness: This is a 42-year-old male patient with a known medical history of tobacco abuse , diabetes who presented to the ED with complaints of chest pain. Patient states that while cleaning his home yesterday he noticed a chest pain that was substernal, radiating up his neck, was characteristically pressure-like in nature and at its worst was a 4 out of 10 on pain scale. The pain lasted several hours and patient states that the pain just got better on its own, denies any known aggravating or alleviating factors. Denies any associated nausea, vomiting, shortness of breath and sweating. Patient states that it feels like it could maybe be some gastric reflux or muscle strain. He does admit to history of an anxiety attack and states that this somewhat reminds him of that episode. Although he denies any anxiety yesterday. Patient denies any recent illness including fever, chills, cough, shortness of breath, headache, vomiting, nausea, vomiting, diarrhea or dysuria. Patient does not follow with the PCP. Patient admits to a significant family medical history on both mother and father's side of cardiovascular disease. He does admit to smoking 1 pack per day of cigarettes for the last 5 years. - Diagnosis (1) Chest pain PMFSH - History History Provided By: Patient - Medical History Medical History: Medical History (Last Reviewed 03/20/18 @ 08:05 by Ida Pardo) Diabetes Epilepsia Hx of tooth extraction Migraines Tobacco abuse - Surgical History Surgical History: Surgical History (Last Reviewed 03/20/18 @ 08:05 by Ida Pardo) Hx of knee surgery - Family History Family History: Family History (Last Updated 03/20/18 @ 08:24 by Ida Pardo) Mother Cardiovascular disease Father Cardiovascular disease - Tobacco History Second Hand Smoke Exposure: Yes Tobacco Use In Past 30 Days: Yes Smoking Status: Current every day smoker Tobacco Type: Cigarettes - Alcohol History How Often Do You Have a Drink Containing Alcohol: Never - Substance Use History Substance History: No History of Abuse - Travel History Recent Travel in the [place] Within the Last 8 Weeks: No Recent Travel Out of the Country Within the Last 8 Weeks: No - Immunization History Tetanus Immunization: >5 Years Hx Influenza Vaccine This Season: No Medications and Allergies Active Medications: Active Medications Aspirin (Aspirin Chew) 81 mg PO DAILY [facility] Last Admin: 03/23/18 09:51 Dose: 81 mg Atorvastatin Calcium (Lipitor) 80 mg PO HS [facility] Last Admin: 03/22/18 20:21 Dose: 80 mg Clonidine HCl (Catapres) 0.1 mg PO Q6H PRN PRN Reason: SEE LABEL COMMENTS Clopidogrel Bisulfate (Plavix) 75 mg PO DAILY [facility] Last Admin: 03/23/18 09:50 Dose: 75 mg Dextrose (D50w Vial) 50 ml IV.PUSH UNSCH PRN PRN Reason: PER HYPOGLYCEMIA PROTOCOL Enalaprilat (Vasotec Inj) 1.25 mg IV.PUSH Q6H PRN PRN Reason: SEE LABEL COMMENTS Glucagon (Glucagon Inj) 1 mg OTHER PRN PRN PRN Reason: for Hypoglycemia Protocol Sodium Chloride (Ns Inj) 1,000 mls @ 84 mls/hr IV.CONT .[id number] [facility] Last Admin: 03/22/18 18:23 Dose: Not Given Insulin Aspart (Novolog Insulin Correctional Sugar Inj) 0 unit SQ ACHS [facility]; Protocol Last Admin: 03/22/18 20:25 Dose: Not Given Lisinopril (Prinivil) 5 mg PO DAILY [facility] Last Admin: 03/23/18 09:51 Dose: 5 mg Metoprolol Tartrate (Lopressor) 12.5 mg PO BID [facility] Last Admin: 03/23/18 09:50 Dose: 12.5 mg Sodium Chloride (Ns Flush) 2 ml IV.FLUSH BID [facility] Last Admin: 03/23/18 09:54 Dose: 2 ml Sodium Chloride (Ns Flush) 2 ml IV.FLUSH PRN PRN PRN Reason: FLUSH AFTER USING IV ACCESS Allergies Allergy/AdvReac Type Severity Reaction Status Date / Time amoxicillin Allergy Severe RASH Verified 03/19/18 20:19 cephalexin Allergy Severe RASH Verified 03/19/18 20:19 ketorolac Allergy Severe SWELLING Verified 03/19/18 20:19 phenobarbital Allergy Severe RASH Verified 03/19/18 20:19 butorphanol AdvReac Intermediate TACHYCARDIA Verified 03/19/18 20:19 sumatriptan AdvReac Intermediate Nausea/Vomi Verified 03/19/18 20:19 ting Home Medications Medication Instructions Recorded Confirmed Type No Known Home Medications 03/19/18 03/21/18 History Exam Vital signs: Vital Signs 03/22/18 12:00 03/22/18 13:00 03/22/18 14:00 Temperature 98.0 F Pulse Rate 59 L 57 L 69 Respiratory Rate 16 Blood Pressure 126/59 L Pulse Oximetry 98 03/22/18 15:00 03/22/18 16:00 03/22/18 17:00 Temperature Pulse Rate 74 73 71 Respiratory Rate Blood Pressure Pulse Oximetry 03/22/18 17:06 03/22/18 17:21 03/22/18 17:36 Temperature Pulse Rate 69 72 61 Respiratory Rate 16 16 16 Blood Pressure 122/74 120/76 124/75 Pulse Oximetry 98 94 L 94 L 03/22/18 17:51 03/22/18 18:00 03/22/18 18:21 Temperature Pulse Rate 65 78 70 Respiratory Rate 16 18 Blood Pressure 114/72 118/80 Pulse Oximetry 95 96 03/22/18 18:51 03/22/18 19:00 03/22/18 19:21 Temperature Pulse Rate 71 70 80 Respiratory Rate 18 18 Blood Pressure 143/95 H 144/90 H Pulse Oximetry 99 98 03/22/18 19:51 03/22/18 20:00 03/22/18 21:00 Temperature 98.0 F Pulse Rate 85 75 70 Respiratory Rate 18 Blood Pressure 141/87 H Pulse Oximetry 98 03/22/18 22:00 03/22/18 23:00 03/23/18 00:00 Temperature 97.8 F Pulse Rate 68 63 67 Respiratory Rate 19 Blood Pressure 135/89 Pulse Oximetry 98 03/23/18 01:00 03/23/18 02:00 03/23/18 03:00 Temperature Pulse Rate 59 L 56 L 52 L Respiratory Rate Blood Pressure Pulse Oximetry 03/23/18 04:00 03/23/18 05:00 03/23/18 06:00 Temperature 96.7 F L Pulse Rate 68 58 L 61 Respiratory Rate 19 Blood Pressure 158/86 H Pulse Oximetry 97 03/23/18 08:00 Temperature 96.6 F L Pulse Rate 56 L Respiratory Rate Blood Pressure 123/71 Pulse Oximetry 98 Intake & Output 03/22/18 03/23/18 03/23/18 18:59 06:59 18:59 Intake Total 560 / 560 450 / 450 Balance 560 / 560 450 / 450 Weight 93.7 kg Intake: Oral 560 / 560 450 / 450 Other: # Voids 4 3 Date of Last Bowel Movement 03/21/18 03/21/18 Results - Labs CBC & Chem 7: 03/23/18 07:50 03/23/18 07:50 Labs: Laboratory Results - last 24 hr 03/23/18 03/23/18 07:50 07:50 WBC 6.5 RBC 4.69 Hgb 15.0 Hct 43.1 MCV 92.0 MCH 31.9 MCHC 34.7 RDW 13.1 Plt Count 190 MPV 8.1 Neut % (Auto) 55.2 Lymph % (Auto) 35.0 [place] % (Auto) 6.6 Eos % (Auto) 2.3 Baso % (Auto) 0.9 Neut # (Auto) 3.6 Lymph # (Auto) 2.3 [place] # (Auto) 0.4 Eos # (Auto) 0.1 Baso # (Auto) 0.1 WBC Differential . Differential Comment Auto diff final Sodium 136 Potassium 3.9 Chloride 104 Carbon Dioxide 25.5 Anion Gap 7 BUN 14 Creatinine 1.00 Estimated GFR 83 L Random Glucose 82 Calcium 8.7 Caprini VTE Risk Assessment Caprini VTE Risk Assessment: No/Low Risk (score <= 1) Caprini Risk Assessment Model: Point Value = 1 Point Value = 2 Point Value = 3 Point Value = 5 Age 41-60 Minor surgery BMI > 25 kg/m2 Swollen legs Varicose veins or History of unexplained or recurrent spontaneous Oral contraceptives or hormone replacement Sepsis (< 1 month) Serious lung disease, including pneumonia (< 1 month) Abnormal pulmonary function Acute myocardial infarction Congestive heart failure (< 1 month) History of inflammatory bowel disease Medical patient at bed rest Age 61-74 Arthroscopic surgery Major open surgery (> 45 min) Laparoscopic surgery (> 45 min) Malignancy Confined to bed (> 72 hours) Immobilizing plaster cast Central venous access Age >= 75 History of VTE Family history of VTE Factor V Leiden Prothrombin [id number] Lupus anticoagulant Anticardiolipin antibodies Elevated serum homocysteine Heparin-induced thrombocytopenia Other congenital or acquired thrombophilia Stroke (< 1 month) Elective arthroplasty Hip, pelvis, or leg fracture Acute spinal cord injury (< 1 month) Prophylaxis Regimen: Total Risk Factor Score Risk Level Prophylaxis Regimen 0-1 Low Early ambulation 2 Moderate Order ONE of the following: *Sequential Compression Device (SCD) *Heparin 5000 units SQ BID 3-4 Higher Order ONE of the following medications: *Heparin 5000 units SQ TID *Enoxaparin/Lovenox 40 mg SQ daily (WT < 150 kg, CrCl > 30 mL/min) *Enoxaparin/Lovenox 30 mg SQ daily (WT < 150 kg, CrCl > 10-29 mL/min) *Enoxaparin/Lovenox 30 mg SQ BID (WT < 150 kg, CrCl > 30 mL/min) AND/OR *Sequential Compression Device (SCD) 5 or more Highest Order ONE of the following medications: *Heparin 5000 units SQ TID (Preferred with Epidurals) *Enoxaparin/Lovenox 40 mg SQ daily (WT < 150 kg, CrCl > 30 mL/min) *Enoxaparin/Lovenox 30 mg SQ daily (WT < 150 kg, CrCl > 10-29 mL/min) *Enoxaparin/Lovenox 30 mg SQ BID (WT < 150 kg, CrCl > 30 mL/min) AND *Sequential Compression Device (SCD) Assessment and Plan - Assessment (1) Chest pain Code(s): R07.9 - Chest pain, unspecified Status: Acute - Plan 42-year-old white male who was admitted for chest pain Abnormal stress tests including treadmill and Lexiscan. Cardiology following, anticipate cardiac catheterization tomorrow.
[2018-03-23 11:28] VITALS: BP 134/75; RESP 18; TEMP 97.3; O2SAT 96
[2018-03-23] MEDS: Insulin NovoLOG Aspart Correctional Sugar Inj SQ SCH (12:22)
--- NOTE | 2018-03-23 12:39 | P.PNCA ---
Subjective Interval history: No events overnight Medications and Allergies Active Medications: Active Medications Aspirin (Aspirin Chew) 81 mg PO DAILY [facility] Last Admin: 03/23/18 09:51 Dose: 81 mg Atorvastatin Calcium (Lipitor) 80 mg PO HS [facility] Last Admin: 03/22/18 20:21 Dose: 80 mg Clonidine HCl (Catapres) 0.1 mg PO Q6H PRN PRN Reason: SEE LABEL COMMENTS Clopidogrel Bisulfate (Plavix) 75 mg PO DAILY [facility] Last Admin: 03/23/18 09:50 Dose: 75 mg Dextrose (D50w Vial) 50 ml IV.PUSH UNSCH PRN PRN Reason: PER HYPOGLYCEMIA PROTOCOL Enalaprilat (Vasotec Inj) 1.25 mg IV.PUSH Q6H PRN PRN Reason: SEE LABEL COMMENTS Glucagon (Glucagon Inj) 1 mg OTHER PRN PRN PRN Reason: for Hypoglycemia Protocol Sodium Chloride (Ns Inj) 1,000 mls @ 84 mls/hr IV.CONT .[id number] [facility] Last Admin: 03/22/18 18:23 Dose: Not Given Insulin Aspart (Novolog Insulin Correctional Sugar Inj) 0 unit SQ ACHS [facility]; Protocol Last Admin: 03/23/18 12:22 Dose: Not Given Lisinopril (Prinivil) 5 mg PO DAILY [facility] Last Admin: 03/23/18 09:51 Dose: 5 mg Metoprolol Tartrate (Lopressor) 12.5 mg PO BID [facility] Last Admin: 03/23/18 09:50 Dose: 12.5 mg Sodium Chloride (Ns Flush) 2 ml IV.FLUSH BID [facility] Last Admin: 03/23/18 09:54 Dose: 2 ml Sodium Chloride (Ns Flush) 2 ml IV.FLUSH PRN PRN PRN Reason: FLUSH AFTER USING IV ACCESS Allergies Allergy/AdvReac Type Severity Reaction Status Date / Time amoxicillin Allergy Severe RASH Verified 03/19/18 20:19 cephalexin Allergy Severe RASH Verified 03/19/18 20:19 ketorolac Allergy Severe SWELLING Verified 03/19/18 20:19 phenobarbital Allergy Severe RASH Verified 03/19/18 20:19 butorphanol AdvReac Intermediate TACHYCARDIA Verified 03/19/18 20:19 sumatriptan AdvReac Intermediate Nausea/Vomi Verified 03/19/18 20:19 ting Home Medications Medication Instructions Recorded Confirmed Type No Known Home Medications 03/19/18 03/21/18 History Physical Exam Vital signs: Vital Signs 03/22/18 13:00 03/22/18 14:00 03/22/18 15:00 Temperature Pulse Rate 57 L 69 74 Respiratory Rate Blood Pressure Pulse Oximetry 03/22/18 16:00 03/22/18 17:00 03/22/18 17:06 Temperature Pulse Rate 73 71 69 Respiratory Rate 16 Blood Pressure 122/74 Pulse Oximetry 98 03/22/18 17:21 03/22/18 17:36 03/22/18 17:51 Temperature Pulse Rate 72 61 65 Respiratory Rate 16 16 16 Blood Pressure 120/76 124/75 114/72 Pulse Oximetry 94 L 94 L 95 03/22/18 18:00 03/22/18 18:21 03/22/18 18:51 Temperature Pulse Rate 78 70 71 Respiratory Rate 18 18 Blood Pressure 118/80 143/95 H Pulse Oximetry 96 99 03/22/18 19:00 03/22/18 19:21 03/22/18 19:51 Temperature 98.0 F Pulse Rate 70 80 85 Respiratory Rate 18 18 Blood Pressure 144/90 H 141/87 H Pulse Oximetry 98 98 03/22/18 20:00 03/22/18 21:00 03/22/18 22:00 Temperature Pulse Rate 75 70 68 Respiratory Rate Blood Pressure Pulse Oximetry 03/22/18 23:00 03/23/18 00:00 03/23/18 01:00 Temperature 97.8 F Pulse Rate 63 67 59 L Respiratory Rate 19 Blood Pressure 135/89 Pulse Oximetry 98 03/23/18 02:00 03/23/18 03:00 03/23/18 04:00 Temperature 96.7 F L Pulse Rate 56 L 52 L 68 Respiratory Rate 19 Blood Pressure 158/86 H Pulse Oximetry 97 03/23/18 05:00 03/23/18 06:00 03/23/18 08:00 Temperature 96.6 F L Pulse Rate 58 L 61 56 L Respiratory Rate Blood Pressure 123/71 Pulse Oximetry 98 03/23/18 09:00 03/23/18 10:00 03/23/18 11:24 Temperature 97.3 F L Pulse Rate 59 L 63 71 Respiratory Rate 18 Blood Pressure 134/75 Pulse Oximetry 96 Intake & Output 03/22/18 03/23/18 03/23/18 18:59 06:59 18:59 Intake Total 560 / 560 450 / 450 Balance 560 / 560 450 / 450 Weight 93.7 kg Intake: Oral 560 / 560 450 / 450 Other: # Voids 4 3 Date of Last Bowel Movement 03/21/18 03/21/18 03/21/18 Narrative: GENERAL: NAD, AAOx3 SKIN: Warm and dry. HEAD: Atraumatic. Normocephalic. EYES: Pupils equal and round. No scleral icterus. No injection or drainage. ENT: No nasal bleeding or discharge. Mucous membranes pink and moist. NECK: Trachea midline. No JVD. CARDIOVASCULAR: Regular rate and rhythm. RESPIRATORY: No accessory muscle use. Clear to auscultation. Breath sounds equal bilaterally. GASTROINTESTINAL: Abdomen soft, non-tender, nondistended. Hepatic and splenic margins not palpable. MUSCULOSKELETAL: Extremities without clubbing, cyanosis, or edema. No obvious deformities. NEUROLOGICAL: Awake and alert. No obvious cranial nerve deficits. Motor grossly within normal limits. Five out of 5 muscle strength in the arms and legs. Normal speech. PSYCHIATRIC: Appropriate mood and affect; insight and judgment normal. Results 03/23/18 07:50 03/23/18 07:50 Coagulation 03/22/18 Range/Units 05:55 PT 10.6 (9.8-11.6) sec APTT 29.3 (24.3-30.1) sec Lipids 03/21/18 Range/Units 12:35 Triglycerides 133 (42-150) mg/dL Cholesterol 181 (120-200) mg/dL HDL Cholesterol 40.9 (40.0-60.0) mg/dL Cholesterol/HDL Ratio 4.42 Ratio CBC 03/23/18 Range/Units 07:50 WBC 6.5 (4.0-11.0) th/mm3 RBC 4.69 (4.50-5.90) mil/mm3 Hgb 15.0 (13.0-17.0) gm/dL Hct 43.1 (39.0-51.0) % Plt Count 190 (150-450) th/mm3 Neut # (Auto) 3.6 (1.8-7.7) th/mm3 Lymph # (Auto) 2.3 (1.0-4.8) th/mm3 [place] # (Auto) 0.4 (0.0-0.9) th/mm3 Eos # (Auto) 0.1 (0.0-0.4) th/mm3 Baso # (Auto) 0.1 (0.0-0.2) th/mm3 Comprehensive Metabolic Panel 03/23/18 Range/Units 07:50 Sodium 136 (136-145) meq/L Potassium 3.9 (3.5-5.1) meq/L Chloride 104 (98-107) meq/L Carbon Dioxide 25.5 (21.0-32.0) meq/L BUN 14 (7-18) mg/dL Creatinine 1.00 (0.60-1.30) mg/dL Calcium 8.7 (8.5-10.1) mg/dL Intake and Output 03/22/18 03/23/18 03/23/18 22:59 06:59 14:59 Intake Total 560 / 560 450 / 450 Balance 560 / 560 450 / 450 Intake: Oral 560 / 560 450 / 450 Other: # Voids 4 3 Date of Last Bowel Movement 03/21/18 03/21/18 03/21/18 Weight 93.7 kg Assessment and Plan - Assessment (1) Abnormal stress test Code(s): R94.39 - Abnormal result of other cardiovascular function study Status: Acute (2) CAD (coronary artery disease) Code(s): I25.10 - Atherosclerotic heart disease of [place] coronary artery without angina pectoris Status: Acute (3) Chest pain Code(s): R07.9 - Chest pain, unspecified Status: Acute - Plan 1) Chest pain/abnormal stress test 2) PCI of LAD with PATRICE ASA/Plavix BB/Statin/FELICITA-I 3) Cardiovascularly stable for discharge He will see if we take his insurance, otherwise will se what manager home improvement he can see
[2018-03-23 12:42] VITALS: PULSE 65
--- NOTE | 2018-03-23 13:03 | P.DS ---
Date of admission: 03/19/18 19:20 Primary care physician: No Primary Care Physician Brief History from admission: This is a 42-year-old male patient with a known medical history of tobacco abuse , diabetes who presented to the ED with complaints of chest pain. Patient states that while cleaning his home yesterday he noticed a chest pain that was substernal, radiating up his neck, was characteristically pressure-like in nature and at its worst was a 4 out of 10 on pain scale. The pain lasted several hours and patient states that the pain just got better on its own, denies any known aggravating or alleviating factors. Denies any associated nausea, vomiting, shortness of breath and sweating. Patient states that it feels like it could maybe be some gastric reflux or muscle strain. He does admit to history of an anxiety attack and states that this somewhat reminds him of that episode. Although he denies any anxiety yesterday. Patient denies any recent illness including fever, chills, cough, shortness of breath, headache, vomiting, nausea, vomiting, diarrhea or dysuria. Patient does not follow with the PCP. Patient admits to a significant family medical history on both mother and father's side of cardiovascular disease. He does admit to smoking 1 pack per day of cigarettes for the last 5 years. DS: Diagnosis - Discharge Diagnosis (1) Chest pain Status: Acute DS: Medications - Discharge Medications Prescriptions: aspirin 81 mg PO DAILY #30 tab atorvastatin 80 mg PO HS #30 tab clopidogrel [Plavix] 75 mg PO DAILY #30 tab lisinopril 5 mg PO DAILY #30 tab metoprolol tartrate 12.5 mg PO BID #60 tab DS: Summary Hospital Course: Patient was initially admitted for chest pain. Underwent 2 stress tests which were abnormal. Cardiology performed PCI with drug eluting stent to LAD. Chest pain resolved. Patient has met maximal benefit from hospitalization and is clinically stable for discharge. Patient was counseled on importance of tobacco cessation medication compliant. - Time Spent with Patient Total time spent providing and/or coordinating discharge services: Less than 30 minutes - Quality: VTE Deep Vein Thrombosis/Pulmonary Embolism Present on Admission: Yes Exam Vital signs: Vital Signs 03/22/18 14:00 03/22/18 15:00 03/22/18 16:00 Temperature Pulse Rate 69 74 73 Respiratory Rate Blood Pressure Pulse Oximetry 03/22/18 17:00 03/22/18 17:06 03/22/18 17:21 Temperature Pulse Rate 71 69 72 Respiratory Rate 16 16 Blood Pressure 122/74 120/76 Pulse Oximetry 98 94 L 03/22/18 17:36 03/22/18 17:51 03/22/18 18:00 Temperature Pulse Rate 61 65 78 Respiratory Rate 16 16 Blood Pressure 124/75 114/72 Pulse Oximetry 94 L 95 03/22/18 18:21 03/22/18 18:51 03/22/18 19:00 Temperature Pulse Rate 70 71 70 Respiratory Rate 18 18 Blood Pressure 118/80 143/95 H Pulse Oximetry 96 99 03/22/18 19:21 03/22/18 19:51 03/22/18 20:00 Temperature 98.0 F Pulse Rate 80 85 75 Respiratory Rate 18 18 Blood Pressure 144/90 H 141/87 H Pulse Oximetry 98 98 03/22/18 21:00 03/22/18 22:00 03/22/18 23:00 Temperature Pulse Rate 70 68 63 Respiratory Rate Blood Pressure Pulse Oximetry 03/23/18 00:00 03/23/18 01:00 03/23/18 02:00 Temperature 97.8 F Pulse Rate 67 59 L 56 L Respiratory Rate 19 Blood Pressure 135/89 Pulse Oximetry 98 03/23/18 03:00 03/23/18 04:00 03/23/18 05:00 Temperature 96.7 F L Pulse Rate 52 L 68 58 L Respiratory Rate 19 Blood Pressure 158/86 H Pulse Oximetry 97 03/23/18 06:00 03/23/18 08:00 03/23/18 09:00 Temperature 96.6 F L Pulse Rate 61 56 L 59 L Respiratory Rate Blood Pressure 123/71 Pulse Oximetry 98 03/23/18 10:00 03/23/18 11:00 03/23/18 11:24 Temperature 97.3 F L Pulse Rate 63 74 71 Respiratory Rate 18 Blood Pressure 134/75 Pulse Oximetry 96 03/23/18 12:00 Temperature Pulse Rate 65 Respiratory Rate Blood Pressure Pulse Oximetry Intake & Output 03/22/18 03/23/18 03/23/18 18:59 06:59 18:59 Intake Total 560 / 560 450 / 450 Balance 560 / 560 450 / 450 Weight 93.7 kg Intake: Oral 560 / 560 450 / 450 Other: # Voids 4 3 Date of Last Bowel Movement 03/21/18 03/21/18 03/21/18 Narrative: Heart sounds regular rate rhythm, no murmurs Clear lungs bilaterally, unlabored breathing Results Procedures completed during hospitalization: PCI w/ PATRICE Labs on day of discharge: Labs from last 24 hours 03/23/18 03/23/18 07:50 07:50 WBC 6.5 RBC 4.69 Hgb 15.0 Hct 43.1 MCV 92.0 MCH 31.9 MCHC 34.7 RDW 13.1 Plt Count 190 MPV 8.1 Neut % (Auto) 55.2 Lymph % (Auto) 35.0 [place] % (Auto) 6.6 Eos % (Auto) 2.3 Baso % (Auto) 0.9 Neut # (Auto) 3.6 Lymph # (Auto) 2.3 [place] # (Auto) 0.4 Eos # (Auto) 0.1 Baso # (Auto) 0.1 WBC Differential . Differential Comment Auto diff final Sodium 136 Potassium 3.9 Chloride 104 Carbon Dioxide 25.5 Anion Gap 7 BUN 14 Creatinine 1.00 Estimated GFR 83 L Random Glucose 82 Calcium 8.7 - Impressions ITS Impressions Chest X-Ray 03/19/18 17:44 CONCLUSION: No active disease. Myocardial Perfusion Scan Nuc Med 03/20/18 00:00 CONCLUSION: 1. Fixed apical defect and reversible perfusion defect anterior basal wall suspected. 2. Ejection fraction of 53%. Discharge Plan - Discharge Disposition Patient Disposition: 01 Discharge Home - Discharge Condition Condition: Stable - Discharge Order Discharge Orders: Discharge Order (Routine); Ordered 03/23/18 Ordered By: Bayron Camacho - Discharge Details Anticipated Discharge Date: 03/20/18 - Physicians Team Primary Care Provider: Primary Care Harleen Cruz Attending Provider: Bayron Camacho Other Providers: José Soliman, ; [place],Insurance
== END 2018-03-23 13:27 | disposition home or self-care (01) ==
LOC: PHEDA 16:01 → PHED 16:01 → PH3 21:50 → HCIS 03-20 18:34
PROVIDERS: ADMIT Hospitalist; ATTEND Hospitalist
DX: E11.9 Type 2 diabetes mellitus without complications; R07.9 Chest pain, unspecified; G40.909 Epilepsy, unspecified, not intractable, without status epilepticus; Z88.0 Allergy status to penicillin; Z79.82 Long term (current) use of aspirin; I25.10 Atherosclerotic heart disease of native coronary artery without angina pectoris; F17.210 Nicotine dependence, cigarettes, uncomplicated; G43.909 Migraine, unspecified, not intractable, without status migrainosus; Z79.4 Long term (current) use of insulin; I26.99 Other pulmonary embolism without acute cor pulmonale; K21.9 Gastro-esophageal reflux disease without esophagitis; Z82.49 Family history of ischemic heart disease and other diseases of the circulatory system